=== PATIENT | male | born 1940 | race Caucasian/White ===

== ENCOUNTER 2020-03-14 10:18 | Inpatient (IN) | payer MEDICARE, OTHER, SELFPAY ==
[2020-03-14] VITALS (22 sets, daily range): BP systolic 110–171; BP diastolic 51–85; PULSE 72–118; RESP 18–31; TEMP 36.5–37.9; O2SAT 91–96; BMI 32.5
--- NOTE | 2020-03-14 10:25 | DI.RAD.S_ITS ---
PROCEDURE: XR CHEST 1V INDICATIONS: fever TECHNIQUE: One view of the chest was acquired. COMPARISON: [facility], CT, PE STUDY (CTA CHEST), 09/29/2015, 13:46. [facility], CT, CHEST WITH CONTRAST, 04/27/2010, 8:18. [facility], CR, CHEST 1 VIEW, 09/29/2015, 10:59. FINDINGS: Surgical changes and devices: None. Lungs and pleura: Low lung volumes are noted. This causes a crowded appearance to the lung markings and limits evaluation. There is chronic elevation of the right hemidiaphragm. Mediastinum: Mediastinal contours appear normal. Heart size is normal. Bones and chest wall: No suspicious bony lesions. Overlying soft tissues appear unremarkable. IMPRESSION: No focal infiltrates are seen. Low lung volumes. Chronic elevation of the right hemidiaphragm is seen. If there is strong clinical concern for paralysis of this hemidiaphragm, please consider a dedicated fluoroscopic sniff test for further evaluation. Dictated by: Russel Osman M.D. on 03/14/2020 at 9:42 Approved by: Russel Osman M.D. on 03/14/2020 at 9:43
--- NOTE | 2020-03-14 10:29 | DI.CT.S_ITS ---
PROCEDURE: CT ABDOMEN PELVIS W CON INDICATIONS: pain all over and fever TECHNIQUE: After the administration of intravenous contrast, 5 mm thick sections acquired from the diaphragm to the symphysis. 5 mm coronal and sagittal reformats were acquired. For radiation dose reduction, the following was used: automated exposure control, adjustment of mA and/or kV according to patient size. COMPARISON: [facility], CT, CHEST WITH CONTRAST, 04/27/2010, 8:18. [facility], CT, PE STUDY (CTA CHEST), 09/29/2015, 13:46. [facility], CT, ABDOMEN/PELVIS WITH CONTRAST, 09/14/2014, 12:39. FINDINGS: Image quality: Excellent. ABDOMEN: Lung bases: Right hemidiaphragm elevation and right basilar atelectasis. Heart size is normal. There is a small hiatal hernia. Solid organs: Liver is enlarged. There is hepatic steatosis. A 2.2 cm of hepatic hypodensity is most likely cyst or hemangioma. A couple of tiny hypodensities in liver are indeterminate. Gallbladder is surgically absent. Biliary system is non dilated. Pancreas enhances normally. Spleen is normal in size and enhancement. A 2 cm fat attenuation mass in the left adrenal gland is consistent with an adrenal myelolipoma. Kidneys demonstrate normal size and enhancement, without hydronephrosis. Peritoneum and bowel: Bowel loops demonstrate normal wall thickness and caliber. Appendix is normal. A few colonic diverticula are present. No CT findings to suggest acute diverticulitis. There is a moderate amount of stool in colon. No free fluid or air. Nodes and vessels: No retroperitoneal or mesenteric adenopathy by size criteria. Aorta and inferior vena cava are normal in size. Miscellaneous: There is a small umbilical hernia containing omental fat and a short segment of small intestine. Myelolipoma PELVIS: Genitourinary: Bladder wall thickness is normal. Miscellaneous: No inguinal adenopathy. Bilateral fat containing inguinal hernias. Bones: No suspicious bony lesions. No vertebral body compression fractures. Mild scoliosis. There are severe degenerative changes in lumbar spine. IMPRESSION: 1. No acute inflammatory process in abdomen or pelvis. 2. Hepatomegaly and hepatic steatosis. A hepatic cyst or hemangioma and a couple of indeterminate hepatic hypodensities are noted. 3. Diverticulosis without acute diverticulitis. 4. A 2 cm fatty mass in the left adrenal, compatible with an adrenal myelolipoma. 5. Small umbilical hernia containing omental fat and a short loop of small intestine. No findings to suggest small bowel obstruction. 6. Small hiatal hernia. Dictated by: Nadege Vigil M.D. on 03/14/2020 at 11:47 Approved by: Nadege Vigil M.D. on 03/14/2020 at 12:01
--- NOTE | 2020-03-14 10:43 | ED.SEPSIS ---
HPI - Sepsis General Chief Complaint: Abdominal Pain Mode of arrival: EMS Source: patient and EMS Limitations: no limitations Evaluation Sepsis Screen: Possible Sepsis Risk Sepsis Infection Criteria Present: Suspected New Infection Narrative: Patient is a 79-year-old male who presents with fever body shaking abdominal and back pain. He said last night he felt okay and this morning woke up and generally did not feel well he had some cramps in his arms along with his abdomen and back as well. He thinks he has a kidney infection although he has never had a kidney infection before. He denies any painful or frequent urination. He has no cough or chest pain although he is having some shortness of breath. Which he says is new. He denies any exposure to COVID. states he also had a injury to his right 2nd toe minute seems to be infected. This happened a couple weeks ago he cut it it did not heal properly it is quite erythematous. Review of Systems Review of Systems ROS Unobtainable: All systems reviewed & are unremarkable except as noted in HPI and below Constitutional Constitutional: Reports body ache(s), Reports chills and Reports fever(s) Eyes Eyes: Denies change in vision, Denies eye discharge, Denies irritation and Denies loss of vision ENT Ears, Nose, Mouth, and Throat: Denies change in voice, Denies neck pain and Denies sore throat Cardiovascular Cardiovascular: Reports dyspnea Respiratory Respiratory: Reports dyspnea Gastrointestinal Gastrointestinal: Reports abdominal pain, Denies change in bowel habits, Denies diarrhea, Denies nausea and Denies vomiting Musculoskeletal Musculoskeletal: Reports back pain, Reports myalgias and Denies neck pain Integumentary/Breasts Skin/Breast: Denies pruritus, Denies erythema, Denies rash and Denies wounds Neurologic Neurologic: Denies loss of vision Patient History Medical History Hypertension (Acute) Social History household members: spouse Smoking Status: Former smoker Smoking Status: Current every day smoker alcohol intake frequency: holidays/special occasions only Substance Use Type: does not use Exam Initial Vital Signs Initial Vital Signs: Vital Signs Temperature 100.3 F H 03/14/20 10:26 Pulse Rate 118 H 03/14/20 10:26 Respiratory Rate 19 03/14/20 10:26 Blood Pressure 171/85 H 03/14/20 10:26 Pulse Oximetry 94 03/14/20 10:26 GENERAL: Alert overweight male and in no acute distress. HEENT: Head atraumatic,EOMI, pupils reactive, face symmetric, moist mucous membranes CARDIOVASCULAR: Regular rate and rhythm without murmurs, rubs or gallops. RESPIRATORY: Breath sounds equal bilaterally, no wheezes rales or rhonchi. Slightly tachypneic speaks in full sentences without difficulty ABDOMEN: Soft, mild abdominal cramping : Mild bilateral CVA tenderness EXTREMITIES: Normal range of motion, no clubbing or edema. Neurovascularly intact NEUROLOGICAL: Alert and oriented x4.Normal gait and speech. SKIN: Right 2nd toe erythematous with erythema spreading up to mid foot Course Orders Ordered: ED Orders 03/14/20 10:25 XR chest 1V Stat 03/14/20 10:29 CT abdomen pelvis w con Stat 03/14/20 10:40 COVID19 -ED/INPAT/OR/L&D Stat 03/14/20 10:55 Complete Blood Count AUTO DIFF Stat Comprehensive Metabolic Panel Stat Lactate (Lactic Acid) Stat Procalcitonin Stat 03/14/20 11:13 Blood Culture Stat 03/14/20 13:16 Urine Culture Stat 03/14/20 13:24 XR foot RT min 3V Stat 03/14/20 13:29 C-Reactive Protein Quant Stat Erythrocyte Sedimentation Rate Stat Acetaminophen (Tylenol) 650 mg PO Q6HR PRN PRN Reason: Fever/Mild Pain (1-3) Last Admin: 03/14/20 17:20 Dose: 650 mg Documented by: ROSEMARY Enoxaparin Sodium (Lovenox) 40 mg SUBCUT DAILY [facility] Cefazolin Sodium/Dextrose (Ancef) 1 gm in 50 mls @ 200 mls/hr IV Q8H [facility] Last Infusion: 03/14/20 17:01 Dose: 0 mls/hr Documented by: Admin: 03/14/20 16:41 Dose: 200 mls/hr Documented by: RAMIREZ Influenza Virus Vaccine (Flu Hd Vaccine) 0.7 ml IM .ONCE ONE Stop: 03/15/20 11:01 Magnesium Hydroxide (Milk Of Magnesia) 30 ml PO DAILY PRN PRN Reason: Constipation Naloxone HCl (Narcan) 0.2 mg IV Q2MIN PRN PRN Reason: Opiate Reversal Discontinued Medications Acetaminophen (Tylenol) 975 mg PO NOW ONE Stop: 03/14/20 10:26 Last Admin: 03/14/20 11:14 Dose: 975 mg Documented by: RAMIREZ Sodium Chloride (Normal Saline 0.9%) 1,000 mls @ 1,000 mls/hr IV BOLUS ONE Stop: 03/14/20 11:24 Last Infusion: 03/14/20 13:11 Dose: 0 mls/hr Documented by: Admin: 03/14/20 11:15 Dose: 1,000 mls/hr Documented by: RAMIREZ Ceftriaxone Sodium/Dextrose (Rocephin) 1 gm in 50 mls @ 100 mls/hr IV NOW ONE Stop: 03/14/20 12:44 Last Infusion: 03/14/20 13:11 Dose: 0 mls/hr Documented by: Admin: 03/14/20 12:29 Dose: 100 mls/hr Documented by: JOANIE Ketorolac Tromethamine (Toradol) 30 mg IV NOW ONE Stop: 03/14/20 12:51 Last Admin: 03/14/20 13:22 Dose: 30 mg Documented by: RAMIREZ Vital Signs Vital signs: Vital Signs - 8 hr 03/14/20 11:13 03/14/20 11:14 03/14/20 11:24 Temperature 100.3 F H Pulse Rate 108 H 104 H Respiratory Rate 29 H Blood Pressure 141/63 H Pulse Oximetry 92 92 03/14/20 11:30 03/14/20 12:00 03/14/20 12:30 Temperature Pulse Rate 104 H 102 H 101 H Respiratory Rate 31 H 24 24 Blood Pressure Pulse Oximetry 92 91 91 03/14/20 13:00 03/14/20 13:22 03/14/20 13:30 Temperature 98.2 F Pulse Rate 97 H 98 H Respiratory Rate 23 22 Blood Pressure Pulse Oximetry 92 92 03/14/20 13:45 03/14/20 14:00 03/14/20 14:22 Temperature 98.2 F 98.2 F Pulse Rate 95 H 88 Respiratory Rate 20 22 Blood Pressure 127/58 L 129/60 Pulse Oximetry 94 93 MDM - Sepsis Lab Data Attestation: I reviewed the patient's lab results. Result diagrams: 03/14/20 10:55 03/14/20 10:55 Labs: Lab Results 03/14/20 03/14/20 03/14/20 Range/Units 10:40 10:55 10:55 WBC 11.5 H (4.5-11.0) X10^3/uL RBC 4.84 (4.5-5.9) X10^6/uL Hgb 14.3 (13.5-17.5) g/dL Hct 43.4 (41-53) % MCV 89.8 (80-100) fL MCH 29.5 (26-34) PG MCHC 32.9 (30-36) % RDW 13.0 (11.6-14.8) % Plt Count 144 L (150-400) X10^3/uL Neut % (Auto) 89.2 H (50-75) % Lymph % (Auto) 3.4 L (25-40) % [place] % (Auto) 7.0 (3-14) % Eos % (Auto) 0.1 L (2-4) % Baso % (Auto) 0.3 (0-2) % Neut # (Auto) 66430 H (9982-5471) /uL Lymph # (Auto) 400 L (9046-0458) /uL [place] # (Auto) 800 (0-900) /uL Eos # (Auto) 0 (0-450) /uL Baso # (Auto) 0 (0-100) /uL ESR (0-15) MM/HR Sodium (137-145) mmol/L Potassium (3.4-5.1) mmol/L Chloride (98-107) mmol/L Carbon Dioxide (22-32) mmol/L BUN (9-20) mg/dL Creatinine (0.66-1.25) mg/dL Estimated GFR (>60) mL/min BUN/Creatinine Ratio (6-22) Glucose (80-110) mg/dL Lactate (0.7-2.1) mmol/L Calcium (8.4-10.2) mg/dL Total Bilirubin (0.2-1.3) mg/dL AST (17-59) IU/L ALT (<50) IU/L Alkaline Phosphatase (38-126) U/L C-Reactive Protein (<1.0) mg/dL Total Protein (6.3-8.2) g/dL Albumin (3.5-5.0) g/dL Globulin (1.7-4.1) g/dL Albumin/Globulin Ratio (1.0-2.8) Procalcitonin 0.70 H (<0.5) ng/mL COVID-19 PCR Negative (Negative) 03/14/20 03/14/20 03/14/20 Range/Units 10:55 10:55 13:29 WBC (4.5-11.0) X10^3/uL RBC (4.5-5.9) X10^6/uL Hgb (13.5-17.5) g/dL Hct (41-53) % MCV (80-100) fL MCH (26-34) PG MCHC (30-36) % RDW (11.6-14.8) % Plt Count (150-400) X10^3/uL Neut % (Auto) (50-75) % Lymph % (Auto) (25-40) % [place] % (Auto) (3-14) % Eos % (Auto) (2-4) % Baso % (Auto) (0-2) % Neut # (Auto) (0370-5697) /uL Lymph # (Auto) (1919-9174) /uL [place] # (Auto) (0-900) /uL Eos # (Auto) (0-450) /uL Baso # (Auto) (0-100) /uL ESR 17 H (0-15) MM/HR Sodium 136 L (137-145) mmol/L Potassium 3.8 (3.4-5.1) mmol/L Chloride 102 (98-107) mmol/L Carbon Dioxide 28 (22-32) mmol/L BUN 18 (9-20) mg/dL Creatinine 0.78 (0.66-1.25) mg/dL Estimated GFR > 60.0 (>60) mL/min BUN/Creatinine Ratio 23.1 H (6-22) Glucose 111 H (80-110) mg/dL Lactate 1.5 (0.7-2.1) mmol/L Calcium 8.4 (8.4-10.2) mg/dL Total Bilirubin 1.0 (0.2-1.3) mg/dL AST 28 (17-59) IU/L ALT 25 (<50) IU/L Alkaline Phosphatase 70 (38-126) U/L C-Reactive Protein (<1.0) mg/dL Total Protein 7.3 (6.3-8.2) g/dL Albumin 3.9 (3.5-5.0) g/dL Globulin 3.4 (1.7-4.1) g/dL Albumin/Globulin Ratio 1.1 (1.0-2.8) Procalcitonin (<0.5) ng/mL COVID-19 PCR (Negative) 03/14/20 Range/Units 13:29 WBC (4.5-11.0) X10^3/uL RBC (4.5-5.9) X10^6/uL Hgb (13.5-17.5) g/dL Hct (41-53) % MCV (80-100) fL MCH (26-34) PG MCHC (30-36) % RDW (11.6-14.8) % Plt Count (150-400) X10^3/uL Neut % (Auto) (50-75) % Lymph % (Auto) (25-40) % [place] % (Auto) (3-14) % Eos % (Auto) (2-4) % Baso % (Auto) (0-2) % Neut # (Auto) (7826-0236) /uL Lymph # (Auto) (4575-1681) /uL [place] # (Auto) (0-900) /uL Eos # (Auto) (0-450) /uL Baso # (Auto) (0-100) /uL ESR (0-15) MM/HR Sodium (137-145) mmol/L Potassium (3.4-5.1) mmol/L Chloride (98-107) mmol/L Carbon Dioxide (22-32) mmol/L BUN (9-20) mg/dL Creatinine (0.66-1.25) mg/dL Estimated GFR (>60) mL/min BUN/Creatinine Ratio (6-22) Glucose (80-110) mg/dL Lactate (0.7-2.1) mmol/L Calcium (8.4-10.2) mg/dL Total Bilirubin (0.2-1.3) mg/dL AST (17-59) IU/L ALT (<50) IU/L Alkaline Phosphatase (38-126) U/L C-Reactive Protein 1.5 H (<1.0) mg/dL Total Protein (6.3-8.2) g/dL Albumin (3.5-5.0) g/dL Globulin (1.7-4.1) g/dL Albumin/Globulin Ratio (1.0-2.8) Procalcitonin (<0.5) ng/mL COVID-19 PCR (Negative) Urine Dip Bedside Urine Glucose Negative Bedside Urine Bilirubin - Negative Bedside Urine Ketone - Negative Urine Specific [place] 1.015 Bedside Urine Occult Blood - Negative Bedside Urine pH 6.5 Bedside Urine Protein - Negative Bedside Urine Urobilinogen - Negative Bedside Urine Nitrite - Negative Bedside Urine Leukocytes - Negative Esterase Imaging Data CT scan - abdomen/pelvis: Radiologist's Impression: PROCEDURE: CT ABDOMEN PELVIS W CON INDICATIONS: pain all over and fever TECHNIQUE: After the administration of intravenous contrast, 5 mm thick sections acquired from the diaphragm to the symphysis. 5 mm coronal and sagittal reformats were acquired. For radiation dose reduction, the following was used: automated exposure control, adjustment of mA and/or kV according to patient size. COMPARISON: [facility], CT, CHEST WITH CONTRAST, 04/27/2010, 8:18. [facility], CT, PE STUDY (CTA CHEST), 09/29/2015, 13:46. [facility], CT, ABDOMEN/PELVIS WITH CONTRAST, 09/14/2014, 12:39. FINDINGS: Image quality: Excellent. ABDOMEN: Lung bases: Right hemidiaphragm elevation and right basilar atelectasis. Heart size is normal. There is a small hiatal hernia. Solid organs: Liver is enlarged. There is hepatic steatosis. A 2.2 cm of hepatic hypodensity is most likely cyst or hemangioma. A couple of tiny hypodensities in liver are indeterminate. Gallbladder is surgically absent. Biliary system is non dilated. Pancreas enhances normally. Spleen is normal in size and enhancement. A 2 cm fat attenuation mass in the left adrenal gland is consistent with an adrenal myelolipoma. Kidneys demonstrate normal size and enhancement, without hydronephrosis. Peritoneum and bowel: Bowel loops demonstrate normal wall thickness and caliber. Appendix is normal. A few colonic diverticula are present. No CT findings to suggest acute diverticulitis. There is a moderate amount of stool in colon. No free fluid or air. Nodes and vessels: No retroperitoneal or mesenteric adenopathy by size criteria. Aorta and inferior vena cava are normal in size. Miscellaneous: There is a small umbilical hernia containing omental fat and a short segment of small intestine. Myelolipoma PELVIS: Genitourinary: Bladder wall thickness is normal. Miscellaneous: No inguinal adenopathy. Bilateral fat containing inguinal hernias. Bones: No suspicious bony lesions. No vertebral body compression fractures. Mild scoliosis. There are severe degenerative changes in lumbar spine. IMPRESSION: 1. No acute inflammatory process in abdomen or pelvis. 2. Hepatomegaly and hepatic steatosis. A hepatic cyst or hemangioma and a couple of indeterminate hepatic hypodensities are noted. 3. Diverticulosis without acute diverticulitis. 4. A 2 cm fatty mass in the left adrenal, compatible with an adrenal myelolipoma. 5. Small umbilical hernia containing omental fat and a short loop of small intestine. No findings to suggest small bowel obstruction. 6. Small hiatal hernia. Dictated by: Nadege Vigil M.D. on 03/14/2020 at 11:47 Approved by: Nadege Vigil M.D. on 03/14/2020 at 12:01 Chest x-ray: Radiologist's Impression: PROCEDURE: XR CHEST 1V INDICATIONS: fever TECHNIQUE: One view of the chest was acquired. COMPARISON: [facility], CT, PE STUDY (CTA CHEST), 09/29/2015, 13:46. [facility], CT, CHEST WITH CONTRAST, 04/27/2010, 8:18. [facility], CR, CHEST 1 VIEW, 09/29/2015, 10:59. FINDINGS: Surgical changes and devices: None. Lungs and pleura: Low lung volumes are noted. This causes a crowded appearance to the lung markings and limits evaluation. There is chronic elevation of the right hemidiaphragm. Mediastinum: Mediastinal contours appear normal. Heart size is normal. Bones and chest wall: No suspicious bony lesions. Overlying soft tissues appear unremarkable. IMPRESSION: No focal infiltrates are seen. Low lung volumes. Chronic elevation of the right hemidiaphragm is seen. If there is strong clinical concern for paralysis of this hemidiaphragm, please consider a dedicated fluoroscopic sniff test for further evaluation. Dictated by: Russel Osman M.D. on 03/14/2020 at 9:42 MDM Narrative Medical decision making narrative: Patient clearly has cellulitis of his right foot no other obvious source of infection is found. Elevated ESR CRP. He is given a dose of Rocephin in the ED to help cover for possible pyelonephritis he does have some CVA tenderness and cellulitis of the right foot. Dr. Martinez in ED to see and evaluate patient accepts for observation Discharge Plan Departure Patient Disposition: Admitted as Observation Clinical Impression: Cellulitis Sepsis Qualifiers: Sepsis type: sepsis due to unspecified organism Sepsis acute organ dysfunction status: without acute organ dysfunction Qualified Code(s): A41.9 - Sepsis, unspecified organism Discharge Date/Time: 03/14/20 17:02 Referrals: Tristian Prater MD [Primary Care Provider] - Admit Date/Time: 03/14/20 14:27 Admit Provider: Johnathan Martinez
[2020-03-14 10:59] LABS: COVID19 -Nasal RAPID Negative (Negative)
[2020-03-14 11:04] LABS: Add Manual Diff / Slide Review NO; Basophils Absolute Auto 0 /uL (0-100); Basophils Percent Auto 0.3 % (0-2); Eosinophils Absolute Auto 0 /uL (0-450); Eosinophils Percent Auto 0.1 % (2-4); Hematocrit 43.4 % (41-53); Hemoglobin 14.3 g/dL (13.5-17.5); Lymphocytes Absolute Auto 400 /uL (1100-4500); Lymphocytes Percent Auto 3.4 % (25-40); Mean Corpuscular HGB Conc 32.9 % (30-36); Mean Corpuscular Hemoglobin 29.5 PG (26-34); Mean Corpuscular Volume 89.8 fL (80-100); Monocytes Absolute Auto 800 /uL (0-900); Neutrophils Absolute Auto 10300 /uL (1500-7000); Neutrophils Percent Auto 89.2 % (50-75); Platelet Count 144 X10^3/uL (150-400); Red Blood Cell Count 4.84 X10^6/uL (4.5-5.9); White Blood Cell Count 11.5 X10^3/uL (4.5-11.0)
[2020-03-14] MEDS: ACETAMINOPHEN 325 MG TABLET 975 MG PO (11:14)
[2020-03-14] MEDS: SODIUM CHLORIDE 0.9% 1,000 ML 1000 ML IV (11:15)
[2020-03-14 11:16] LABS: Alanine Aminotransferase 25 IU/L (<50); Albumin 3.9 g/dL (3.5-5.0); Albumin Globulin Ratio 1.1 (1.0-2.8); Alkaline Phosphatase 70 U/L (38-126); Aspartate Aminotransferase 28 IU/L (17-59); BUN Creatinine Ratio 23.1 (6-22); Blood Urea Nitrogen 18 mg/dL (9-20); Calcium 8.4 mg/dL (8.4-10.2); Carbon Dioxide 28 mmol/L (22-32); Chloride 102 mmol/L (98-107); Estimated Glomerular Filt Rate > 60.0 mL/min (>60); Globulin 3.4 g/dL (1.7-4.1); Glucose 111 mg/dL (80-110); HEMOLYSIS < 15 (0-50); Potassium 3.8 mmol/L (3.4-5.1); Sodium 136 mmol/L (137-145); Total Protein 7.3 g/dL (6.3-8.2)
[2020-03-14 11:17] LABS: Lactate (Lactic Acid) 1.5 mmol/L (0.7-2.1)
[2020-03-14] MEDS: CEFTRIAXONE 1 GM/50 ML FROZ.PIGGY IV (12:29)
[2020-03-14] MEDS: KETOROLAC 60 MG/2 ML VIAL 30 MG IV (13:22)
--- NOTE | 2020-03-14 13:24 | DI.RAD.S_ITS ---
PROCEDURE: XR FOOT RT MIN 3V INDICATIONS: 2nd toe ?osteo TECHNIQUE: 3 views of the foot were acquired. COMPARISON: None. FINDINGS: Bones: In this patient with this given history, scrutiny is given to the 2nd toe. No findings of bony erosions or periosteal reactions can be seen of the 2nd toe. No acute fractures are seen. There is a chronic appearing fracture seen involving the lateral base of the proximal phalanx of the great toe. Age-appropriate bony degenerative changes are seen. No suspicious lytic or blastic lesions are seen. Toe alignment abnormalities are seen. A plantar calcaneal spur is seen. Soft tissues: No tibiotalar joint effusion. Achilles tendon appears normal. IMPRESSION: No plain film findings of osteomyelitis can be seen. If there is strong suspicion for developing osteomyelitis, please consider a dedicated MRI without and with contrast for further evaluation (assuming that there is no contraindication to MRI). Degenerative changes are seen, including toe alignment abnormalities and a plantar calcaneal spur. Dictated by: Russel Osman M.D. on 03/14/2020 at 13:00 Approved by: Russel Osman M.D. on 03/14/2020 at 13:02
[2020-03-14 13:39] LABS: C-Reactive Protein Quant 1.5 mg/dL (<1.0)
[2020-03-14 13:48] LABS: Erythrocyte Sedimentation Rate 17 MM/HR (0-15)
--- NOTE | 2020-03-14 14:25 | PC.NURSE ---
right great toe, extending to top of foot, red. outlined. pt dropped a a 4x4 piece of wood on it in November. second toe is swollen, red.
--- NOTE | 2020-03-14 16:04 | P.HP_ITS ---
History of Present Illness History of Present Illness Date Patient Seen: 03/14/20 Time Patient Seen: 15:15 Date of Onset of Symptoms: 03/13/20 Chief complaint: Kidney pain since last night Narrative: Patient is a 79-year-old male with obesity but otherwise no chronic health problems presented to the emergency department with complaints of shaking chills since last night. He was feeling okay until last p.m. developed shaking chills which lasted all night and into this morning. He also noticed some back pain and thought it could be a kidney infection. In the ER he was found to have a red and swollen right 2nd toe extending to the distal foot. Patient states he dropped a 4 x 4 on his foot back in November. He has been applying Neosporin ointment often on and had not sought medical attention. He did notice some redness developing in the foot over the past couple of weeks. In ER he had low-grade temp of 100.3?, initial heart rate 118, normal to mildly hypertensive BP, normal respirations and O2 sat. Labs included mildly elevated WBC 11.5 with left shift, elevated procalcitonin 0.7, ESR 17 and CRP 1.5. Lactate is 1.5. He had normal urinalysis. Chest x-ray without infiltrate. Abdomen and pelvis CT without acute disease. Foot x-rays without evidence of fracture or osteomyelitis. He denies cough, dyspnea, abdominal pain, urinary difficulty. Patient received dose of IV antibiotic and admitted to hospital observation. Patient History Medical History Hypertension (Acute) Family & Social History Safety & Behavioral: Feels Safe in Current Yes Environment Been Physically Hurt or No Threatened By a Person Tobacco & Substance use: Smoking Status Current every day smoker alcohol intake frequency holiday/special occasion Substance Use Type does not use Meds Home Medications and Allergies Home Medications Medication Instructions Recorded Confirmed Type dextromethorphan polistirex 30 mg PO Q12H 10 Days #0 ml 06/14/16 Rx [Delsym 12 hour] dextromethorphan-guaifenesin 1 tab PO Q12H 10 Days #0 tab 06/14/16 Rx [Mucinex DM] oseltamivir [Tamiflu] 75 mg PO BID 5 Days #0 cap 06/14/16 Rx Allergies Allergy/AdvReac Type Severity Reaction Status Date / Time No Known Drug Allergies Allergy Unknown Verified 03/14/20 10:32 Review of Systems Review of Systems ROS: Yes All systems reviewed with the patient and are negative except as otherwise documented Exam Vital Signs (past 8 hours): - 03/14/20 10:26 03/14/20 11:13 03/14/20 11:14 Temperature 100.3 F H 100.3 F H Pulse Rate 118 H 108 H Respiratory Rate 19 Blood Pressure 171/85 H Pulse Oximetry 94 92 03/14/20 11:24 03/14/20 11:30 03/14/20 12:00 Temperature Pulse Rate 104 H 104 H 102 H Respiratory Rate 29 H 31 H 24 Blood Pressure 141/63 H Pulse Oximetry 92 92 91 03/14/20 12:30 03/14/20 13:00 03/14/20 13:30 Temperature Pulse Rate 101 H 97 H 98 H Respiratory Rate 24 23 22 Blood Pressure Pulse Oximetry 91 92 92 03/14/20 13:45 03/14/20 14:00 03/14/20 14:22 Temperature 98.2 F 98.2 F Pulse Rate 95 H 88 Respiratory Rate 20 22 Blood Pressure 127/58 L 129/60 Pulse Oximetry 94 93 03/14/20 14:30 03/14/20 15:00 03/14/20 15:30 Temperature Pulse Rate 82 81 77 Respiratory Rate 22 19 21 Blood Pressure 113/54 L 122/59 L 110/51 L Pulse Oximetry 94 92 93 Oxygen Delivery Method Room Air Narrative Exam Narrative: General: Alert and cooperative male currently in no acute distress after pain relievers in the ED HEENT: Pupils equal and reactive Neck: No lymphadenopathy Lungs: Clear to auscultation Heart: Normal S1 and S2, regular rate and rhythm, no murmur Abdomen: Obese, soft, nontender, no HSM, no CVAT Extremities: No pretibial edema, there is macular erythema and mild swelling of the right 2nd toe with erythema extending to the distal 3rd of the foot. There is hard callus at tip of the 2nd right toe. There are no draining lesions or ulcers. Objective Labs Result Diagrams: 03/14/20 10:55 03/14/20 10:55 Labs: Laboratory Results - last 24 hr 03/14/20 03/14/20 03/14/20 10:40 10:55 10:55 WBC 11.5 H RBC 4.84 Hgb 14.3 Hct 43.4 MCV 89.8 MCH 29.5 MCHC 32.9 RDW 13.0 Plt Count 144 L Neut % (Auto) 89.2 H Lymph % (Auto) 3.4 L [place] % (Auto) 7.0 Eos % (Auto) 0.1 L Baso % (Auto) 0.3 Neut # (Auto) 93380 H Lymph # (Auto) 400 L [place] # (Auto) 800 Eos # (Auto) 0 Baso # (Auto) 0 ESR Sodium Potassium Chloride Carbon Dioxide BUN Creatinine Estimated GFR BUN/Creatinine Ratio Glucose Lactate Calcium Total Bilirubin AST ALT Alkaline Phosphatase C-Reactive Protein Total Protein Albumin Globulin Albumin/Globulin Ratio Procalcitonin 0.70 H COVID-19 PCR Negative 03/14/20 03/14/20 03/14/20 10:55 10:55 13:29 WBC RBC Hgb Hct MCV MCH MCHC RDW Plt Count Neut % (Auto) Lymph % (Auto) [place] % (Auto) Eos % (Auto) Baso % (Auto) Neut # (Auto) Lymph # (Auto) [place] # (Auto) Eos # (Auto) Baso # (Auto) ESR 17 H Sodium 136 L Potassium 3.8 Chloride 102 Carbon Dioxide 28 BUN 18 Creatinine 0.78 Estimated GFR > 60.0 BUN/Creatinine Ratio 23.1 H Glucose 111 H Lactate 1.5 Calcium 8.4 Total Bilirubin 1.0 AST 28 ALT 25 Alkaline Phosphatase 70 C-Reactive Protein Total Protein 7.3 Albumin 3.9 Globulin 3.4 Albumin/Globulin Ratio 1.1 Procalcitonin COVID-19 PCR 03/14/20 13:29 WBC RBC Hgb Hct MCV MCH MCHC RDW Plt Count Neut % (Auto) Lymph % (Auto) [place] % (Auto) Eos % (Auto) Baso % (Auto) Neut # (Auto) Lymph # (Auto) [place] # (Auto) Eos # (Auto) Baso # (Auto) ESR Sodium Potassium Chloride Carbon Dioxide BUN Creatinine Estimated GFR BUN/Creatinine Ratio Glucose Lactate Calcium Total Bilirubin AST ALT Alkaline Phosphatase C-Reactive Protein 1.5 H Total Protein Albumin Globulin Albumin/Globulin Ratio Procalcitonin COVID-19 PCR Assessment & Plan Assessment & Plan narrative: Patient is a 79-year-old male who presents with acute rigors and evidence of right foot cellulitis. 1. Acute right foot cellulitis, present on admission, active -patient with history of mild trauma to the foot in November of this year -patient with rigors, low-grade temp, tachycardia -labs: WBC 11.5, procalcitonin 0.7, low ESR and CRP -foot x-ray without fracture or osteomyelitis -blood cultures obtained in ED -treat with cefazolin 1 g IV q.8 hours -acetaminophen as needed pain or fever -follow exam and repeat CBC and procalcitonin in a.m. -can switch to oral therapy if patient afebrile with declining WBC and procalcitonin COVID-19 PCR: Negative Code status: Full code DVT prophylaxis: Lovenox Admission status: Observation
[2020-03-14] MEDS: CEFAZOLIN 1 GM/50 ML FROZ.PIGGY IV (16:41)
[2020-03-14] MEDS: ACETAMINOPHEN 325 MG TABLET 650 MG PO (17:20)
[2020-03-15] VITALS (15 sets, daily range): BP systolic 125–149; BP diastolic 61–79; PULSE 68–77; RESP 15–20; TEMP 36.9–37.9; O2SAT 93–97
[2020-03-15] MEDS: CEFAZOLIN 1 GM/50 ML FROZ.PIGGY IV ×3 (00:37→17:13)
[2020-03-15] MEDS: ACETAMINOPHEN 325 MG TABLET 650 MG PO ×2 (00:39→17:16)
[2020-03-15] MEDS: MAGNESIUM HYDROXIDE 30 ML UDC PO (01:18)
--- NOTE | 2020-03-15 03:35 | PC.NURSE ---
Patient was feeling lightheaded and feverish. Temp was 100.3 F at 00:39. He was given acetaminophen 650 mg. His temp went down to 98.5 at 02:27. He was also complaining of feeling full in his abdomen and that he had not had a bowel movement in two days. He was given Milk and Magnesia but has still not had a bowel movement at this time.
--- NOTE | 2020-03-15 04:08 | PC.NURSE ---
Pt resting in bed with eyes closed at time of safety checks with change of nurses. Personal items are within reach.
[2020-03-15 05:21] LABS: Add Manual Diff / Slide Review NO; Basophils Absolute Auto 0 /uL (0-100); Basophils Percent Auto 0.6 % (0-2); Eosinophils Absolute Auto 0 /uL (0-450); Eosinophils Percent Auto 0.1 % (2-4); Hematocrit 38.7 % (41-53); Hemoglobin 12.8 g/dL (13.5-17.5); Lymphocytes Absolute Auto 500 /uL (1100-4500); Lymphocytes Percent Auto 8.9 % (25-40); Mean Corpuscular HGB Conc 33.1 % (30-36); Mean Corpuscular Hemoglobin 29.7 PG (26-34); Mean Corpuscular Volume 89.6 fL (80-100); Monocytes Absolute Auto 600 /uL (0-900); Neutrophils Absolute Auto 4700 /uL (1500-7000); Neutrophils Percent Auto 80.4 % (50-75); Platelet Count 109 X10^3/uL (150-400); Red Blood Cell Count 4.32 X10^6/uL (4.5-5.9); Red Cell Distribution Width 12.9 % (11.6-14.8); White Blood Cell Count 5.8 X10^3/uL (4.5-11.0)
[2020-03-15 05:43] LABS: Procalcitonin 3.77 ng/mL (<0.5)
[2020-03-15] MEDS: ENOXAPARIN 40 MG/0.4 ML SYRINGE SUBCUT (08:22)
--- NOTE | 2020-03-15 08:31 | DI.CT.S_ITS ---
PROCEDURE: CT CHEST WO CON INDICATIONS: cough TECHNIQUE: Noncontrast 5 mm thick sections acquired from the pulmonary apices to the posterior costophrenic angles. 1 mm lung window, 5 mm thick coronal and sagittal and 7 mm axial MIP reformats were then acquired. For radiation dose reduction, the following was used: automated exposure control, adjustment of mA and/or kV according to patient size. COMPARISON: [facility], CT, PE STUDY (CTA CHEST), 09/29/2015, 13:46. [facility], CT, CHEST WITH CONTRAST, 04/27/2010, 8:18. [facility], CT, CT ABDOMEN PELVIS W CON, 03/14/2020, 11:33. [facility], CR, XR CHEST 1V, 03/14/2020, 10:28. FINDINGS: Image quality: Excellent. Lungs and pleura: Mild consolidations can be seen within the lung bases, which have the appearance most likely atelectasis. No pleural effusions or pneumothorax. Central and peripheral airways are patent and normal in caliber. There is elevation of the right hemidiaphragm. Mediastinum: Heart size is normal. No pericardial effusion. No mediastinal adenopathy by size criteria. Thoracic aorta and central pulmonary arteries are normal in size. Esophagus is normal in caliber. A small hiatal hernia is incidentally noted. hiatal hernia. Bones and chest wall: No suspicious bony lesions. No vertebral body compression fractures. Mild dextroconvex scoliotic curvature is seen. Age-appropriate bony degenerative changes are seen. Remote left lateral rib fractures can be seen. No axillary or supraclavicular adenopathy by size criteria. Thyroid gland demonstrates no significant noncontrast abnormality. Abdomen: There is a water density liver cyst seen medially measuring 2.2 cm, as on series 2, image 58. 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 Cholecystectomy clips are seen. The visualized portions of the upper abdominal structures are otherwise unremarkable for imaging technique. IMPRESSION: Likely mild atelectasis at the lung bases. Differential diagnosis includes infiltrate, yet this is considered to be less likely. Chronic elevation the right hemidiaphragm If there is strong clinical concern for paralysis of this hemidiaphragm, please consider a dedicated fluoroscopic sniff test for further evaluation. Incidental note is made of: Remote left lateral rib fractures Small hiatal hernia Liver cyst Left adrenal lipoma Cholecystectomy Dextroconvex scoliotic curvature Dictated by: Russel Osman M.D. on 03/15/2020 at 8:11 Approved by: Russel Osman M.D. on 03/15/2020 at 8:16
--- NOTE | 2020-03-15 09:32 | P.PN_ITS ---
Subjective Subjective Date Patient Seen: 03/15/20 Interval history: Patient is 79-year-old male with obesity but otherwise no chronic health problems presented with fever and rigors. He is admitted for right foot cellulitis. Patient reports improvement in right foot pain and did not have fever overnight. Exam Vital Signs (past 8 hours): - 03/15/20 02:00 03/15/20 02:27 03/15/20 03:00 Temperature 99.3 F 98.5 F Pulse Rate Respiratory Rate Blood Pressure Pulse Oximetry 93 03/15/20 06:35 03/15/20 08:27 03/15/20 08:42 Temperature 99.0 F 98.6 F Pulse Rate 76 71 Respiratory Rate 15 20 Blood Pressure 125/61 128/64 Pulse Oximetry 94 95 95 Oxygen Delivery Method Room Air Oxygen Flow Rate 0 Narrative Exam Narrative: General: Alert and cooperative male in no acute distress Lungs: Diminished breath sounds in right lower lobe crackles Heart: Regular rhythm Extremities: There is resolution of erythema over dorsum of right foot. There is improvement of right 2nd toe erythema and swelling. Objective Labs Result Diagrams: 03/15/20 05:05 03/14/20 10:55 Labs: Laboratory Results - last 24 hr 03/14/20 03/14/20 03/14/20 10:40 10:55 10:55 WBC 11.5 H RBC 4.84 Hgb 14.3 Hct 43.4 MCV 89.8 MCH 29.5 MCHC 32.9 RDW 13.0 Plt Count 144 L Neut % (Auto) 89.2 H Lymph % (Auto) 3.4 L [place] % (Auto) 7.0 Eos % (Auto) 0.1 L Baso % (Auto) 0.3 Neut # (Auto) 81327 H Lymph # (Auto) 400 L [place] # (Auto) 800 Eos # (Auto) 0 Baso # (Auto) 0 ESR Sodium Potassium Chloride Carbon Dioxide BUN Creatinine Estimated GFR BUN/Creatinine Ratio Glucose Lactate Calcium Total Bilirubin AST ALT Alkaline Phosphatase C-Reactive Protein Total Protein Albumin Globulin Albumin/Globulin Ratio Procalcitonin 0.70 H COVID-19 PCR Negative 03/14/20 03/14/20 03/14/20 10:55 10:55 13:29 WBC RBC Hgb Hct MCV MCH MCHC RDW Plt Count Neut % (Auto) Lymph % (Auto) [place] % (Auto) Eos % (Auto) Baso % (Auto) Neut # (Auto) Lymph # (Auto) [place] # (Auto) Eos # (Auto) Baso # (Auto) ESR 17 H Sodium 136 L Potassium 3.8 Chloride 102 Carbon Dioxide 28 BUN 18 Creatinine 0.78 Estimated GFR > 60.0 BUN/Creatinine Ratio 23.1 H Glucose 111 H Lactate 1.5 Calcium 8.4 Total Bilirubin 1.0 AST 28 ALT 25 Alkaline Phosphatase 70 C-Reactive Protein Total Protein 7.3 Albumin 3.9 Globulin 3.4 Albumin/Globulin Ratio 1.1 Procalcitonin COVID-19 PCR 03/14/20 03/15/20 03/15/20 13:29 05:05 05:05 WBC 5.8 RBC 4.32 L Hgb 12.8 L Hct 38.7 L MCV 89.6 MCH 29.7 MCHC 33.1 RDW 12.9 Plt Count 109 L Neut % (Auto) 80.4 H Lymph % (Auto) 8.9 L [place] % (Auto) 10.0 Eos % (Auto) 0.1 L Baso % (Auto) 0.6 Neut # (Auto) 4700 Lymph # (Auto) 500 L [place] # (Auto) 600 Eos # (Auto) 0 Baso # (Auto) 0 ESR Sodium Potassium Chloride Carbon Dioxide BUN Creatinine Estimated GFR BUN/Creatinine Ratio Glucose Lactate Calcium Total Bilirubin AST ALT Alkaline Phosphatase C-Reactive Protein 1.5 H Total Protein Albumin Globulin Albumin/Globulin Ratio Procalcitonin 3.77 H COVID-19 PCR Assessment & Plan Assessment & Plan narrative: Patient is a 79-year-old male who presents with acute rigors and evidence of right foot cellulitis. 1. Acute right foot cellulitis, present on admission, active -patient with history of mild trauma to the foot in November of this year, foot x- ray without fracture or osteomyelitis -patient is clinically responding to IV antibiotic with improvement of fever, right foot erythema and decrease in WBC, however his procalcitonin has significantly bumped up -labs: WBC 11.5--5.8, procalcitonin 0.7--3.77, low ESR and CRP -blood cultures negative to date -treat with cefazolin 1 g IV q.8 hours -acetaminophen as needed pain or fever -follow exam and repeat CBC and procalcitonin in a.m. -can switch to oral therapy if patient afebrile with declining WBC and procalcitonin 2. Chronic rib elevation of right hemidiaphragm -patient with persistent right lower base crackles and has chronic a.m. cough, right base crackles noted on exam -noncontrast chest CT shows elevated right hemidiaphragm and right base atelectasis but no evidence of pneumonia -incentive spirometry Patient requires at least 1 additional night in hospital for IV antibiotic until we see his procalcitonin significantly coming down. COVID-19 PCR: Negative Code status: Full code DVT prophylaxis: Lovenox Admission status: Change to inpatient Quality VTE Deep Vein Thrombosis/Pulmonary Embolism Present on Admission: No
[2020-03-15] MEDS: INFLUENZA HD VACCINE 0.7 ML SYRINGE IM (10:28)
--- NOTE | 2020-03-15 11:58 | PC.NURSE ---
Addendum entered by Lis Pollock R.N. 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 At shift change pt had his hearing aids in bilateral ears. Original Note: Day Shift- Took over care from CHARLY Nair at 1100. pt up to BR with SBA, steady gait, then settled back into recliner chair with RLE elevated on 2 pillows. Right 2nd toe redness. Pt states color is less bright red than yesterday. edema present. Previously marked when redness was, currently only has redness to right 2nd toe. Dry skin and callus to end of 2nd right toe. Pt states no pain with rest and 6-7/10 aching with ambulation. No PRN pain meds at this time.Pt declined. Call light within reach, pt uses appropriately.
--- NOTE | 2020-03-15 14:50 | CM.DANOTE ---
Discharge Planning/Care Management DCP: assessment: case received, EMR reviewed and met with pt briefly during Team Rounds and then later with pt and his Becki. Introduced self and role. Pt is a 79 year old male who admitted yesterday afternoon to care of hospitalist team. PCP: Tristian Prater: [facility] Payer: Medicare and R. Pt admitted with R foot cellulitis and is on IV antibiotics. Dr. Martinez explained to pt in Rounds that he would be keeping him until at least tomorrow and would be able to d/c home once his labs stabilized. Pt confirmed that he was extremely [place] and asked Dr. Martinez to discuss POC further with his . During followup visit with pt and Becki she did confirm that she had received a call from Dr. Martinez and was appreciative of same. She said her understanding was that pt will go home likely tomorrow and would be following up with a marketing underwriter at d/c as well as with his PCP. P: follow up tomorrow. At this time plan is home and clinic followup when stable for same and on oral antibiotics. CM Discharge Assessment Start: 03/15/20 14:48 Freq: Status: Active Protocol: Document 03/15/20 14:49 ITV (Rec: 03/15/20 14:50 ITV [id number]) Discharge Planning Assessment Advance Directives? No History Provided By Patient,Family Member,Medical Record Prior Living Arrangements House Household Members spouse Independent with ADL's Yes Is patient alert and oriented? Yes Discharge Plan Home
[2020-03-16] VITALS: BP 145/79; PULSE 71; RESP 18; TEMP 36.5; O2SAT 96
[2020-03-16] MEDS: CEFAZOLIN 1 GM/50 ML FROZ.PIGGY IV ×2 (00:42→07:49)
[2020-03-16 00:50] VITALS: O2SAT 96
[2020-03-16 04:45] VITALS: BP 153/77; PULSE 81; RESP 18; TEMP 36.6; O2SAT 95
[2020-03-16 05:00] VITALS: O2SAT 95
[2020-03-16 05:53] LABS: Hematocrit 39.9 % (41-53); Hemoglobin 13.3 g/dL (13.5-17.5); Mean Corpuscular HGB Conc 33.4 % (30-36); Mean Corpuscular Hemoglobin 29.9 PG (26-34); Mean Corpuscular Volume 89.7 fL (80-100); Platelet Count 116 X10^3/uL (150-400); Red Blood Cell Count 4.45 X10^6/uL (4.5-5.9); Red Cell Distribution Width 12.8 % (11.6-14.8)
[2020-03-16 05:54] LABS: Add Manual Diff / Slide Review YES
[2020-03-16 06:13] LABS: Procalcitonin 2.29 ng/mL (<0.5)
[2020-03-16 06:34] LABS: Neutrophils Absolute Manual 3450 /uL (3000-5900); RBC Morphology Normal Morphology; Total Cells Counted 100
[2020-03-16 07:40] VITALS: O2SAT 94
[2020-03-16] MEDS: SODIUM CHLORIDE 0.9% FLUSH 10 ML IV (07:49)
[2020-03-16] MEDS: ENOXAPARIN 40 MG/0.4 ML SYRINGE SUBCUT (07:49)
[2020-03-16 08:00] VITALS: BP 146/71; PULSE 93; RESP 18; TEMP 36.6; O2SAT 94
--- NOTE | 2020-03-16 08:57 | PC.NURSE ---
Addendum entered by Lis Pollock R.N. 03/16/20 13:13: At 1240, discharge summary packet reviewed with pt, aware of S/S of infection, prescription and antibiotic use. Wound care per Dr. Ravi. Aware to call Dr. Ravi's office Tuesday morning to make a follow up appointment for this coming . No further voiced concerns. Pt states has all belongings upon discharge. Pt left unit at 1311 in no distress via wheelchair with [employer] escort. Pt's present to drive pt home. Addendum entered by Lis Pollock R.N. 03/16/20 11:26: Dr. Ravi perform bedside procedure on pt's right 2nd toe, Bupivacaine inj not used by Dr. Ravi. Wound culture from 2nd right toe sent to lab for wound culture and sensitivity and gram stain per Dr. Ravi verbal order at 1045. Per Dr. Martinez, pt will be discharged home today. [facility] pharmacy closed today,therefore pt's 2nd request for pharmacy is [facility] in [place]. Original Note: Day Shift- Pt currently sitting up in chair with RLE elevated on 2 pillows. Pt denies pain with rest, states pain 5-6/10 with ambulation. Pt did not want any prn meds at this time. Right 2nd toe red, not exceeding past toe, wrinkles at base of toe. hard callus to tip of toe. To right of nail bed is soft fluid like under skin, pt also concerned with this. Spoke with Dr. Martinez at 0858, aware of above. Plan for NPO and Ortho consult. Pt aware from Dr. Martinez. Pt appropriate using call light for assist. No other issues.
--- NOTE | 2020-03-16 10:16 | P.CONS_ITS ---
History of Present Illness Consult details Date Patient Seen: 03/16/20 Time Patient Seen: 09:46 Chief complaint: Kidney pain since last night Reason for consult: Right second toe injury, hx of cellulitis Requesting provider: Johnathan Martinez Narrative: Mr. Pearson is a 79 yo M with hx of right foot injury 3 months ago. Soo curiel developed cellulitis over his right foot over the last month. He was admitted and placed on IV antibiotics. He responded well with near complete resolution of his cellulitis. He has a chronic appearing calus over his right second toe. He has some fluid collection at the tip of his second toe which is flucturant on exam. Dr. Martinez consulted orthopedics service for additional recommendation and t reatment. Meds Home Medications and Allergies Home Medications Medication Instructions Recorded Confirmed Type hydrochlorothiazide 25 mg PO DAILY 03/15/20 03/15/20 History potassium chloride 20 meq PO DAILY 03/15/20 03/15/20 History Allergies Allergy/AdvReac Type Severity Reaction Status Date / Time No Known Drug Allergies Allergy Unknown Verified 03/14/20 10:32 Exam Vital Signs (past 8 hours): - 03/16/20 04:45 03/16/20 05:00 03/16/20 07:40 Temperature 97.9 F Pulse Rate 81 Respiratory Rate 18 Blood Pressure 153/77 H Pulse Oximetry 95 95 94 03/16/20 08:00 Temperature 97.9 F Pulse Rate 93 H Respiratory Rate 18 Blood Pressure 146/71 H Pulse Oximetry 94 Oxygen Delivery Method Room Air Oxygen Flow Rate 0 Extrem Other: Right second toe with calus on the tip, on the side of the calus patient has small amount of fluid collection under the calused skin. There is no open wound, no drainage, no cellulitis. Objective Labs Result Diagrams: 03/16/20 05:15 03/14/20 10:55 Labs: Laboratory Results - last 24 hr 03/16/20 03/16/20 05:15 05:15 WBC 5.0 RBC 4.45 L Hgb 13.3 L Hct 39.9 L MCV 89.7 MCH 29.9 MCHC 33.4 RDW 12.8 Plt Count 116 L Neut % (Auto) Not Reportable Lymph % (Auto) Not Reportable [place] % (Auto) Not Reportable Eos % (Auto) Not Reportable Baso % (Auto) Not Reportable Lymph # (Auto) Not Reportable [place] # (Auto) Not Reportable Baso # (Auto) Not Reportable Total Counted 100 Seg Neutrophils % 37.0 L Band Neutrophils % 32.0 H Lymphocytes % (Manual) 14.0 L Atypical Lymphs % 6.0 H Monocytes % (Manual) 9.0 Eosinophils % (Manual) 2.0 Neutrophils # (Manual) 3450 RBC Morphology Normal morphology Procalcitonin 2.29 H Assessment & Plan Assessment & Plan narrative: Patient had chronic right foot injury from an object falling on it couple of months ago. His cellulitis is resolving with antibiotic. He has small fluid collection on tip of right second toe that is flucturant on exam. I obtained verbal consent and performed a bed side I&D. 0.5 cc of cloudy fluid was expressed and sent for culture. Patient's right foot was preped and draped using sterile technique. 11 blade was used to make incision over the fluid filled portion of the tip of toe. Fluid was expressed and culture was taken. The wound was then covered with dressing. 0.25% marcaine w/o epi was used to numb the toe. Patient tolerated the procedure well. Patient is cleared for discharge today with oral antibiotic. Patient need to call tomorrow to make appointment to be seen on for w ound check. Patient can weight bear as tolerated. Patient should perform daily warm soaks to allow the fluid to continue to drain to prevent recollection. Will follow wound culture and adjust antibiotic as needed.
--- NOTE | 2020-03-16 11:35 | CM.DPC ---
DCP: continued: case discussed today in Team Rounds with Dr. Martinez and Dr. Ravi/consulting. Dr. Ravi performed a bedside procedure on pt's foot and noted that pt was stable for d/c home today on oral antibiotics and with a followup appt as outpt with Dr. Ravi. Dr. Martinez has completed the orders now. Pt will d/c home today with his and followup as above.
--- NOTE | 2020-03-16 12:54 | P.DS_ITS ---
History of Present Illness History of Present Illness Chief complaint: Kidney pain since last night Narrative: Patient is a 79-year-old male with obesity but otherwise no chronic health problems presented to the emergency department with complaints of shaking chills since last night. He was feeling okay until last p.m. developed shaking chills which lasted all night and into this morning. He also noticed some back pain and thought it could be a kidney infection. In the ER he was found to have a red and swollen right 2nd toe extending to the distal foot. Patient states he dropped a 4 x 4 on his foot back in November. He has been applying Neosporin ointment often on and had not sought medical attention. He did notice some redness developing in the foot over the past couple of weeks. In ER he had low-grade temp of 100.3?, initial heart rate 118, normal to mildly hypertensive BP, normal respirations and O2 sat. Labs included mildly elevated WBC 11.5 with left shift, elevated procalcitonin 0.7, ESR 17 and CRP 1.5. Lactate is 1.5. He had normal urinalysis. Chest x-ray without infiltrate. Abdomen and pelvis CT without acute disease. Foot x-rays without evidence of fracture or osteomyelitis. He denies cough, dyspnea, abdominal pain, urinary difficulty. Patient received dose of IV antibiotic and admitted to hospital observation. Discharge Providers Provider Date of admission: 03/14/20 14:27 Discharge Date: 03/16/20 Primary care physician: Tristian Prater MD Consults: 03/16/20 09:51 Consult to Physician Routine Comment: Consulting Provider: Candice Ravi Reason for consultation: foot cellulitis Has provider been notified: Yes Discharge provider: Johnathan Martinez MD Summary Hospital Course Discharge Diagnosis: 1. Right foot cellulitis 2. Superficial abscess of right 2nd toe 3. Essential hypertension 4. Untreated obstructive sleep apnea Urogynecology Physician: Dr. Candice Ravi Hospital Course: Patient was treated with cephazolin for right foot cellulitis. The erythema quickly receded to wear it now just involves the distal toe. He had bedside incision and drainage of a superficial abscess on the distal toe associated with soft callus and nail fungus. There was drainage of small amount of pus which was sent for culture. Patient has been afebrile the last couple of days and able to be discharged on cephalexin. He will follow up in Ortho office in about 5 days. Status at Discharge Cognitive/behavioral status at discharge: oriented Functional status at discharge: independent ambulation Overall status at discharge: patient is not back to baseline Time Spent with Patient Time spent: Greater than 30 minutes Exam Vital Signs (past 8 hours): - 03/16/20 05:00 03/16/20 07:40 03/16/20 08:00 Temperature 97.9 F Pulse Rate 93 H Respiratory Rate 18 Blood Pressure 146/71 H Pulse Oximetry 95 94 94 Oxygen Delivery Method Room Air Oxygen Flow Rate 0 Objective Labs Result Diagrams: 03/16/20 05:15 03/14/20 10:55 Labs: Laboratory Results - last 24 hr 03/16/20 03/16/20 05:15 05:15 WBC 5.0 RBC 4.45 L Hgb 13.3 L Hct 39.9 L MCV 89.7 MCH 29.9 MCHC 33.4 RDW 12.8 Plt Count 116 L Neut % (Auto) Not Reportable Lymph % (Auto) Not Reportable [place] % (Auto) Not Reportable Eos % (Auto) Not Reportable Baso % (Auto) Not Reportable Lymph # (Auto) Not Reportable [place] # (Auto) Not Reportable Baso # (Auto) Not Reportable Total Counted 100 Seg Neutrophils % 37.0 L Band Neutrophils % 32.0 H Lymphocytes % (Manual) 14.0 L Atypical Lymphs % 6.0 H Monocytes % (Manual) 9.0 Eosinophils % (Manual) 2.0 Neutrophils # (Manual) 3450 RBC Morphology Normal morphology Procalcitonin 2.29 H Discharge Plan Discharge Plan Patient Disposition: Home Nursing Discharge Comment: Per Dr. Ravi, perform Betadine Solution soak on toe. (Small amount of Betadine in water), pat dry with gauze. Place gauze covering over toe and secure with tape and sock. If you are having difficulty removing gauze from wound when you are performing a dressing change, you may get wet the area of gauze that is sticking to the wound to help ease it off. Petroleum gauze may be placed on wound then dry gauze only if gauze is sticking to wound and ca using issue. Dr. Ravi prefers the wound have dry gauze only. Discharge orders & Medications Prescriptions: New cephalexin 500 mg capsule 500 mg PO TID Qty: 21 RF: 0 Continued hydrochlorothiazide 25 mg Tablet 25 mg PO DAILY RF: 0 potassium chloride 20 mEq Tablet Extended Release 20 meq PO DAILY RF: 0 Follow up/Referrals: Tristian Prater MD [Primary Care Provider] - Candice Ravi MD [Physician] - 3-5 Days (Please call TuesdayMarch 17 to make an appointment for March [address] Ravi's office.) Diet/Activity/Treatments Diet: Diet as Tolerated Skin/Wound/Dressing Care Report to your healthcare provider any signs of infection, such as:: chills, fever, increased pain, unusual drainage and unusual redness Visit Report/Discharge Packet Instructions: DI for Cellulitis -- Adult, How to Prevent Falls, Cephalexin, Skin Wound, How to Use Antibiotics Wisely Visit Report Forms: Patient Portal/API, Stroke Signs & Symptoms Discharge Data Primary Care Provider: Tristian Prater Quality VTE Deep Vein Thrombosis/Pulmonary Embolism Present on Admission: No
== END 2020-03-16 13:11 | disposition home or self-care (01) | DRG 603 ==
LOC: ED 13:55 → AC 14:38
PROVIDERS: Admitting Provider Internal Medicine; Emergency Provider Emergency Medicine; Family Provider Family Medicine; PCP Family Medicine; Referring Provider Emergency Medicine; Visit Provider Internal Medicine
DX: L03.115 Cellulitis of right lower limb (principal); L02.611 Cutaneous abscess of right foot; R93.89 Abnormal findings on diagnostic imaging of other specified body structures; R05 Cough; G47.30 Sleep apnea, unspecified; E66.9 Obesity, unspecified; Z68.32 Body mass index [BMI] 32.0-32.9, adult; F17.210 Nicotine dependence, cigarettes, uncomplicated; Z11.59 Encounter for screening for other viral diseases
CPT/HCPCS: 36415; 71045; 71250; 73630; 74177; 80053; 81003; 83605; 84145; 85025; 85651; 86140; 87040; 87070; 87077; 87086; 87147; 87186; 87205; 87635; 90471; 90662; 96361; 96365; 96375; 99284; 99406; J1650; J1885; Q9967

== ENCOUNTER 2022-03-22 09:34 | Observation (INO) | payer MEDICARE, OTHER, SELFPAY ==
[2020-03-14 17:07] VITALS: BMI 32.5
[2022-03-22] VITALS (27 sets, daily range): BP systolic 113–211; BP diastolic 58–105; PULSE 56–79; RESP 16–30; TEMP 36.1–36.4; O2SAT 93–97; BMI 27.0
--- NOTE | 2022-03-22 09:38 | DI.RAD.S_ITS ---
PROCEDURE: XR CHEST 1V INDICATIONS: Chest pain TECHNIQUE: One view of the chest was acquired. COMPARISON: [facility], CR, XR CHEST 1V, 03/14/2020, 10:28. FINDINGS: Surgical changes and devices: None. Lungs and pleura: Lungs are clear. No pleural effusions or pneumothorax. Mediastinum: Mediastinal contours appear normal. Heart size is normal. Bones and chest wall: No suspicious bony lesions. Overlying soft tissues appear unremarkable. IMPRESSION: No acute cardiopulmonary pathology. Dictated by: Kiko Reagan M.D. on 03/22/2022 at 10:05 Approved by: Kiko Reagan M.D. on 03/22/2022 at 10:09
--- NOTE | 2022-03-22 09:44 | ED.GENADULT ---
HPI - General Adult General Chief complaint: Chest Pain Stated complaint: chest pain Time Seen by Provider: 03/22/22 09:37 Source: patient Mode of arrival: Ambulatory Limitations: no limitations History of Present Illness HPI narrative: 81-year-old male. History of hypertension. Was diagnosed with Parkinson's disease earlier this year as well. No prior cardiac history. Not on anticoagulation. Has been taking his medications as directed. Here for evaluation of chest discomfort. It started in his lower left chest at approximately 0230 in the morning which was 7 hours ago. He does have nitro at home. 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 He took the nitro. He thought that it did help his symptoms somewhat however it has returned since then. He is currently asymptomatic. He is also having shortness of breath. No underlying diagnosed lung pathology. He also states that there was something behind by heart ?that was found earlier and he is scheduled to have a CT scan on Tuesday of this week to further evaluate this. All of these imaging studies were done at an outside facility. He does not know exactly what was going on with this finding. Related Data Home Medications Medication Instructions Recorded Confirmed hydrochlorothiazide 25 mg tablet 25 mg PO DAILY 03/15/20 03/15/20 potassium chloride 20 mEq 20 meq PO DAILY 03/15/20 03/15/20 tablet,extended release Allergies Allergy/AdvReac Type Severity Reaction Status Date / Time No Known Drug Allergies Allergy Unknown Verified 03/22/22 09:45 Review of Systems Review of Systems ROS Unobtainable: All systems reviewed & are unremarkable except as noted in HPI and below Patient History Medical History Cellulitis Hypertension Parkinsons disease Social History household members: spouse Smoking Status: Former smoker Smoking Status: Former smoker alcohol intake frequency: holidays/special occasions only Substance Use Type: does not use Exam Initial Vital Signs Initial Vital Signs: Vital Signs Temperature 97.5 F L 03/22/22 09:42 Pulse Rate 70 03/22/22 09:42 Respiratory Rate 30 H 03/22/22 09:42 Blood Pressure 187/99 H 03/22/22 09:42 Pulse Oximetry 95 03/22/22 09:42 Oxygen Delivery Method 03/22/22 09:42 Const General: cooperative and No in distress HENID Head: normal to inspection and normocephalic Eyes General: Yes appearance normal, both eyes and all related structures Chest Chest: No crepitus and No tenderness Resp Effort & Inspection: no cough, no grunting, not labored, no respiratory distress, no retractions and tachypneic Auscultation: clear to auscultation bilaterally, no rhonchi and no wheezes Cardio Rate: regular rate Rhythm: regular rhythm GI Inspection: normal to inspection and non-distended Skin General: no rashes or lesions noted Neuro General: patient alert, patient awake and moves all extremities Extrem General: No edema Psych Appearance: grossly normal and well kempt Scores HEART Score Heart Score history: Moderately Suspicious Heart Score EKG: Normal Heart Score Age: > or = 65 years old Heart Score risk factors: 1-2 risk factors Heart Score troponin: < or = to normal limit Heart Score Total: 4 Course Orders Ordered: ED Orders 03/22/22 09:38 XR chest 1V Stat 03/22/22 09:45 COVID19 -Nasal RAPID/Pre-Proc Stat Complete Blood Count AUTO DIFF Stat Comprehensive Metabolic Panel Stat Lipase Stat NT-proBNP (BNP-Adult 18+) Stat Partial Thromboplastin Time Stat Prothrombin Time INR Stat Troponin & CK Cardiac Panel Stat 03/22/22 09:46 EKG-12 Lead Stat 03/22/22 10:05 CT angio chest abdomen pelvis Stat 03/22/22 12:44 Troponin & CK Cardiac Panel Stat Sodium Chloride (Normal Saline 0.9%) 1,000 mls @ 125 mls/hr IV CONT ANCA Last Admin: 03/22/22 09:52 Dose: 125 mls/hr Documented By: ELSA Discontinued Medications Aspirin (Aspirin 81 Mg Chew Tab) 324 mg PO NOW ONE Stop: 03/22/22 09:44 Last Admin: 03/22/22 09:51 Dose: 324 mg Documented By: ELSA Vital Signs Vital signs: Vital Signs - 8 hr 03/22/22 09:42 03/22/22 09:42 03/22/22 09:42 Temperature 97.5 F L Pulse Rate 70 79 Respiratory Rate 30 H 22 Blood Pressure 187/99 H 211/105 H Pulse Oximetry 95 96 Oxygen Delivery Method Room Air 03/22/22 09:45 03/22/22 09:45 03/22/22 10:00 Temperature Pulse Rate 69 Respiratory Rate Blood Pressure 187/99 H 166/84 H Pulse Oximetry 97 Oxygen Delivery Method Room Air 03/22/22 10:00 03/22/22 10:15 03/22/22 10:15 Temperature Pulse Rate 64 65 Respiratory Rate 22 25 H Blood Pressure 164/84 H Pulse Oximetry 94 93 Oxygen Delivery Method 03/22/22 10:30 03/22/22 10:30 03/22/22 10:45 Temperature Pulse Rate 62 61 Respiratory Rate 21 23 Blood Pressure 163/81 H Pulse Oximetry 93 93 Oxygen Delivery Method 03/22/22 10:45 03/22/22 11:08 03/22/22 11:09 Temperature Pulse Rate 62 62 Respiratory Rate 25 H 22 Blood Pressure 149/78 H Pulse Oximetry 94 95 Oxygen Delivery Method 03/22/22 11:09 03/22/22 11:16 03/22/22 11:16 Temperature Pulse Rate 60 Respiratory Rate 22 Blood Pressure 174/76 H 113/58 L Pulse Oximetry 96 Oxygen Delivery Method Room Air 03/22/22 11:30 03/22/22 11:30 03/22/22 11:45 Temperature Pulse Rate 56 L 57 L Respiratory Rate 21 21 Blood Pressure 167/77 H Pulse Oximetry 96 95 Oxygen Delivery Method 03/22/22 11:45 03/22/22 12:00 03/22/22 12:00 Temperature Pulse Rate 58 L Respiratory Rate 21 Blood Pressure 146/67 H 149/68 H Pulse Oximetry 95 Oxygen Delivery Method 03/22/22 12:15 03/22/22 12:15 03/22/22 12:30 Temperature Pulse Rate 59 L Respiratory Rate 29 H Blood Pressure 157/84 H 143/64 H Pulse Oximetry 93 Oxygen Delivery Method 03/22/22 12:30 03/22/22 12:45 03/22/22 12:45 Temperature Pulse Rate 59 L 61 Respiratory Rate 22 24 Blood Pressure 152/72 H Pulse Oximetry 94 94 Oxygen Delivery Method Room Air 03/22/22 13:00 03/22/22 13:00 03/22/22 13:15 Temperature Pulse Rate 58 L 58 L Respiratory Rate 22 28 H Blood Pressure 138/63 Pulse Oximetry 94 97 Oxygen Delivery Method Room Air 03/22/22 13:15 03/22/22 13:30 03/22/22 13:30 Temperature Pulse Rate 60 Respiratory Rate 24 Blood Pressure 141/68 H 193/84 H Pulse Oximetry 95 Oxygen Delivery Method 03/22/22 13:45 03/22/22 13:45 03/22/22 14:00 Temperature Pulse Rate 61 Respiratory Rate 25 H Blood Pressure 143/75 H 145/68 H Pulse Oximetry 96 Oxygen Delivery Method 03/22/22 14:00 03/22/22 14:15 03/22/22 14:15 Temperature Pulse Rate 60 57 L Respiratory Rate 25 H 26 H Blood Pressure 131/67 Pulse Oximetry 96 95 Oxygen Delivery Method Medical Decision Making Lab Data Lab results reviewed: Yes I reviewed the patient's lab results. Result diagrams: 03/22/22 09:45 03/22/22 09:45 Labs: Lab Results 03/22/22 03/22/22 03/22/22 Range/Units 09:45 09:45 09:45 WBC 6.7 (4.5-11.0) X10^3/uL RBC 4.91 (4.5-5.9) X10^6/uL Hgb 15.1 (13.5-17.5) g/dL Hct 44.4 (41-53) % MCV 90.3 (80-100) fL MCH 30.7 (26-34) PG MCHC 33.9 (30-36) % RDW 13.7 (11.6-14.8) % Plt Count 153 (150-400) X10^3/uL Neut % (Auto) 61.0 (50-75) % Lymph % (Auto) 23.8 L (25-40) % [place] % (Auto) 12.4 (3-14) % Eos % (Auto) 2.1 (2-4) % Baso % (Auto) 0.7 (0-2) % Neut # (Auto) 4100 (1464-9228) /uL Lymph # (Auto) 1600 (4866-9135) /uL [place] # (Auto) 800 (0-900) /uL Eos # (Auto) 100 (0-450) /uL Baso # (Auto) 0 (0-100) /uL PT 12.4 (10.1-12.7) SECONDS INR 1.1 (0.9-1.3) APTT 32 (26-36) SECONDS Sodium 140 (137-145) mmol/L Potassium 4.1 (3.4-5.1) mmol/L Chloride 103 (98-107) mmol/L Carbon Dioxide 29 (22-32) mmol/L BUN 15 (9-20) mg/dL Creatinine 0.86 (0.66-1.25) mg/dL Estimated GFR > 60 (>60) mL/min BUN/Creatinine Ratio 17.4 (6-22) Glucose 90 (80-110) mg/dL Calcium 8.7 (8.4-10.2) mg/dL Total Bilirubin 0.5 (0.2-1.3) mg/dL AST 26 (17-59) IU/L ALT 12 (<50) IU/L Alkaline Phosphatase 77 (38-126) U/L Total Creatine Kinase 77 (55-170) U/L CK-MB (CK-2) TNP CK-MB (CK-2) Rel Index TNP Troponin I < 0.012 (0.01-0.034) ng/mL NT-Pro-B Natriuret Pep (<450) pg/mL Total Protein 7.5 (6.3-8.2) g/dL Albumin 3.9 (3.5-5.0) g/dL Globulin 3.6 (1.7-4.1) g/dL Albumin/Globulin Ratio 1.1 (1.0-2.8) Lipase 78 (23-300) U/L SARS-CoV-2 (PCR) (Negative) 03/22/22 03/22/22 03/22/22 Range/Units 09:45 09:45 12:44 WBC (4.5-11.0) X10^3/uL RBC (4.5-5.9) X10^6/uL Hgb (13.5-17.5) g/dL Hct (41-53) % MCV (80-100) fL MCH (26-34) PG MCHC (30-36) % RDW (11.6-14.8) % Plt Count (150-400) X10^3/uL Neut % (Auto) (50-75) % Lymph % (Auto) (25-40) % [place] % (Auto) (3-14) % Eos % (Auto) (2-4) % Baso % (Auto) (0-2) % Neut # (Auto) (9260-5377) /uL Lymph # (Auto) (6700-6328) /uL [place] # (Auto) (0-900) /uL Eos # (Auto) (0-450) /uL Baso # (Auto) (0-100) /uL PT (10.1-12.7) SECONDS INR (0.9-1.3) APTT (26-36) SECONDS Sodium (137-145) mmol/L Potassium (3.4-5.1) mmol/L Chloride (98-107) mmol/L Carbon Dioxide (22-32) mmol/L BUN (9-20) mg/dL Creatinine (0.66-1.25) mg/dL Estimated GFR (>60) mL/min BUN/Creatinine Ratio (6-22) Glucose (80-110) mg/dL Calcium (8.4-10.2) mg/dL Total Bilirubin (0.2-1.3) mg/dL AST (17-59) IU/L ALT (<50) IU/L Alkaline Phosphatase (38-126) U/L Total Creatine Kinase 67 (55-170) U/L CK-MB (CK-2) TNP CK-MB (CK-2) Rel Index TNP Troponin I < 0.012 (0.01-0.034) ng/mL NT-Pro-B Natriuret Pep 92 (<450) pg/mL Total Protein (6.3-8.2) g/dL Albumin (3.5-5.0) g/dL Globulin (1.7-4.1) g/dL Albumin/Globulin Ratio (1.0-2.8) Lipase (23-300) U/L SARS-CoV-2 (PCR) Negative (Negative) Imaging Data Chest x-ray: Radiologist's Impression: [address] [address] XRay Report Signed Patient: Mendel Pearson Jr MR#: [id number] : 1940 Acct:[id number] Age/Sex: 81 / M Date of Service: 03/22/22 Loc: ED Accession Number: [id number] ?? Procedure: XR chest 1V Ordering Provider: Nimesh Rios D.O. PROCEDURE:? XR CHEST 1V ? INDICATIONS:? Chest pain ? TECHNIQUE:? One view of the chest was acquired.? ? COMPARISON:? [facility], CR, XR CHEST 1V, 03/14/2020, 10:28. ? FINDINGS:? ? Surgical changes and devices:? None.? ? Lungs and pleura:? Lungs are clear.? No pleural effusions or pneumothorax.? ? Mediastinum:? Mediastinal contours appear normal.? Heart size is normal.? ? Bones and chest wall:? No suspicious bony lesions.? Overlying soft tissues appear unremarkable.? ? IMPRESSION:? No acute cardiopulmonary pathology. ? ? Dictated by: Kiko Reagan M.D. on 03/22/2022 at 10:05 ? ? Approved by: Kiko Reagan M.D. on 03/22/2022 at 10:09?? CTA chest/abd/pelvis: Radiologist's Impression: [place] [address] CT Scan Report Signed Patient: Mendel Pearson Jr MR#: [id number] : 1940 Acct:[id number] Age/Sex: 81 / M Date of Service: 03/22/22 Loc: ED Accession Number: [id number] ?? Procedure: CT angio chest abdomen pelvis Ordering Provider: Nimesh Rios D.O. PROCEDURE:? CT ANGIO CHEST ABDOMEN PELVIS ? INDICATIONS:? eval for aortic aneurysm ? TECHNIQUE:? Precontrast 5 mm thick sections acquired from the lung apices to the iliac crests.? After the administration of intravenous contrast, 2.5 mm thick sections again acquired from the lung apices to the iliac crests.? Maximum intensity projection (MIP) oblique sagittal and coronal reformats were then acquired.? For radiation dose reduction, the following was used:? automated exposure control.? ? COMPARISON:? None. ? FINDINGS:? Image quality:? Excellent.? ? AORTA:? The thoracoabdominal aorta demonstrates mild diffuse stenosis without evidence of aneurysm, nor dissection. ? CHEST:? Lungs and pleura:? No acute airspace opacities.? No pleural effusions or pneumothorax.? Central and peripheral airways are patent and normal in caliber.? ? Mediastinum:? Heart size is normal.? There is mild calcification of the coronary vasculature.? No pericardial effusion.? No mediastinal or hilar adenopathy by size criteria.? Central pulmonary arteries are normal in size.? Esophagus is normal in caliber.? No hiatal hernias.? ? Bones and chest wall:? No axillary adenopathy by size criteria.? There is a 21 mm low-density nodule within the right thyroid lobe posteriorly.? No suspicious bony lesions.? No vertebral body compression fractures.? ? ? ABDOMEN:? Vasculature:? Celiac trunk and mesenteric arteries are patent.? Renal arteries are also patent.? ? Solid organs:? Liver is normal in size and enhancement.? Gallbladder is surgically absent .? Biliary system is non dilated.? Pancreas enhances normally.? Spleen is normal in size and enhancement.? No adrenal nodules.? Both kidneys are normal in size and enhancement, without hydronephrosis.? ? Peritoneum and bowel:? No free fluid or air.? Bowel loops are normal in caliber and wall thickness.? ? Nodes and vessels:? No retroperitoneal or mesenteric adenopathy by size criteria.? Inferior vena cava is normal in morphology.? ? Miscellaneous:? There is a 40 mm diameter fat containing umbilical hernia. ? ? PELVIS:? Genitourinary:? Bladder wall thickness is normal.? ? Miscellaneous:? No inguinal hernias or adenopathy.? No ventral hernias.? ? Bones:? No suspicious bony lesions.? No vertebral body compression fractures.? ? ? IMPRESSION:? 1. No acute process involving the chest, abdomen, or pelvis. 2. Coronary artery disease. 3. Right thyroid nodule; initial further assessment with nonemergent outpatient follow-up ultrasound examination is recommended. 4. Fat containing umbilical hernia.? ? ? Dictated by: Opal Obrien M.D. on 03/22/2022 at 11:16 ? ? Approved by: Opal Obrien M.D. on 03/22/2022 at 11:19? ECG Data Attestation: I personally reviewed and interpreted this ECG as follows: Prior ECG tracings: available for review Interpretation: Sinus rhythm Ventricular rate is 68 Left axis deviation Left anterior fascicular block QRS 110 milliseconds Normal QTC No ST T wave changes Today's EKG unchanged from EKG in 2016 MDM Narrative Medical decision making narrative: EKG is unchanged from 2016. He has been asymptomatic since arrival here in the ER. Troponin is negative x2. CT scan of the chest was ordered because the patient states that his used building materials yard worker was concerned that there was something wrong with his aorta. There was no signs of dissection/aneurysms today. Patient did receive aspirin. He stated that he recently attempted an exercise stress test but was unable to complete it because he became short of breath before there was any diagnostic certainty of the test. He has not had any follow-up with cardiology since then. A discussion regarding risks and benefits of admission to the hospital versus discharge and outpatient further risk stratification the patient opted to be admitted to the hospital. Discussed the case with Dr. Cody with Internal Medicine. Dr. Cody will admit. Patient is aware and agreement. Admission provider was made aware the incidental finding of a thyroid nodule and the following needed. Discharge Plan Departure Patient Disposition: Admitted as Observation Clinical Impression: Thyroid nodule, Chest pain, rule out acute myocardial infarction
[2022-03-22] MEDS: ASPIRIN 81 MG CHEW TAB 324 MG PO (09:51)
[2022-03-22] MEDS: SODIUM CHLORIDE 0.9% 1,000 ML 125 ML IV (09:52)
[2022-03-22 09:55] LABS: Add Manual Diff / Slide Review NO; Basophils Absolute Auto 0 /uL (0-100); Basophils Percent Auto 0.7 % (0-2); Eosinophils Absolute Auto 100 /uL (0-450); Eosinophils Percent Auto 2.1 % (2-4); Hematocrit 44.4 % (41-53); Hemoglobin 15.1 g/dL (13.5-17.5); Lymphocytes Absolute Auto 1600 /uL (1100-4500); Lymphocytes Percent Auto 23.8 % (25-40); Mean Corpuscular HGB Conc 33.9 % (30-36); Mean Corpuscular Hemoglobin 30.7 PG (26-34); Mean Corpuscular Volume 90.3 fL (80-100); Monocytes Absolute Auto 800 /uL (0-900); Monocytes Percent Auto 12.4 % (3-14); Neutrophils Absolute Auto 4100 /uL (1500-7000); Platelet Count 153 X10^3/uL (150-400); Red Blood Cell Count 4.91 X10^6/uL (4.5-5.9); Red Cell Distribution Width 13.7 % (11.6-14.8); White Blood Cell Count 6.7 X10^3/uL (4.5-11.0)
[2022-03-22 10:02] LABS: INR 1.1 (0.9-1.3); Prothrombin Time 12.4 SECONDS (10.1-12.7)
[2022-03-22 10:05] LABS: PTT Partial Thromboplastin Tim 32 SECONDS (26-36)
--- NOTE | 2022-03-22 10:05 | DI.CT.S_ITS ---
PROCEDURE: CT ANGIO CHEST ABDOMEN PELVIS INDICATIONS: eval for aortic aneurysm TECHNIQUE: Precontrast 5 mm thick sections acquired from the lung apices to the iliac crests. After the administration of intravenous contrast, 2.5 mm thick sections again acquired from the lung apices to the iliac crests. Maximum intensity projection (MIP) oblique sagittal and coronal reformats were then acquired. For radiation dose reduction, the following was used: automated exposure control. COMPARISON: None. FINDINGS: Image quality: Excellent. AORTA: The thoracoabdominal aorta demonstrates mild diffuse stenosis without evidence of aneurysm, nor dissection. CHEST: Lungs and pleura: No acute airspace opacities. No pleural effusions or pneumothorax. Central and peripheral airways are patent and normal in caliber. Mediastinum: Heart size is normal. There is mild calcification of the coronary vasculature. No pericardial effusion. No mediastinal or hilar adenopathy by size criteria. Central pulmonary arteries are normal in size. Esophagus is normal in caliber. No hiatal hernias. Bones and chest wall: No axillary adenopathy by size criteria. There is a 21 mm low-density nodule within the right thyroid lobe posteriorly. No suspicious bony lesions. No vertebral body compression fractures. ABDOMEN: Vasculature: Celiac trunk and mesenteric arteries are patent. Renal arteries are also patent. Solid organs: Liver is normal in size and enhancement. Gallbladder is surgically absent . Biliary system is non dilated. Pancreas enhances normally. Spleen is normal in size and enhancement. No adrenal nodules. Both kidneys are normal in size and enhancement, without hydronephrosis. Peritoneum and bowel: No free fluid or air. Bowel loops are normal in caliber and wall thickness. Nodes and vessels: No retroperitoneal or mesenteric adenopathy by size criteria. Inferior vena cava is normal in morphology. Miscellaneous: There is a 40 mm diameter fat containing umbilical hernia. PELVIS: Genitourinary: Bladder wall thickness is normal. Miscellaneous: No inguinal hernias or adenopathy. No ventral hernias. Bones: No suspicious bony lesions. No vertebral body compression fractures. IMPRESSION: 1. No acute process involving the chest, abdomen, or pelvis. 2. Coronary artery disease. 3. Right thyroid nodule; initial further assessment with nonemergent outpatient follow-up ultrasound examination is recommended. 4. Fat containing umbilical hernia. Dictated by: Opal Obrien M.D. on 03/22/2022 at 11:16 Approved by: Opal Obrien M.D. on 03/22/2022 at 11:19
[2022-03-22 10:11] LABS: Alanine Aminotransferase 12 IU/L (<50); Albumin 3.9 g/dL (3.5-5.0); Albumin Globulin Ratio 1.1 (1.0-2.8); Alkaline Phosphatase 77 U/L (38-126); Aspartate Aminotransferase 26 IU/L (17-59); BUN Creatinine Ratio 17.4 (6-22); Bilirubin Total 0.5 mg/dL (0.2-1.3); Blood Urea Nitrogen 15 mg/dL (9-20); Calcium 8.7 mg/dL (8.4-10.2); Carbon Dioxide 29 mmol/L (22-32); Chloride 103 mmol/L (98-107); Creatine Kinase 77 U/L (55-170); Estimated Glomerular Filt Rate > 60 mL/min (>60); Globulin 3.6 g/dL (1.7-4.1); Glucose 90 mg/dL (80-110); HEMOLYSIS 15 (0-50); Lipase 78 U/L (23-300); Potassium 4.1 mmol/L (3.4-5.1); Sodium 140 mmol/L (137-145); Total Protein 7.5 g/dL (6.3-8.2)
[2022-03-22 10:20] LABS: NT-proBNP (BNP-Adult 18+) 92 pg/mL (<450)
[2022-03-22 10:23] LABS: Troponin I < 0.012 ng/mL (0.01-0.034)
[2022-03-22 11:11] LABS: COVID19 -Nasal RAPID Negative (Negative)
[2022-03-22 13:06] LABS: Creatine Kinase 67 U/L (55-170)
[2022-03-22 13:19] LABS: Troponin I < 0.012 ng/mL (0.01-0.034)
--- NOTE | 2022-03-22 15:15 | PM.HP.1 ---
History of Present Illness History of Present Illness Date Patient Seen: 03/22/22 Time Patient Seen: 15:00 Chief complaint: chest pain Narrative: Mr. Pearson is a 81M with PMH HTN, parkinsons who comes in to the hospital with chest pain and shortness of breath. He states he has been seeing a storekeeper steward for shortness of breath that is worse with activity. He was ordered for exercise stress test but could not complete due to fatigue. He has been planned for nuc stress test, but this is not ordered or scheduled currently. He woke up overnight with left sided chest discomfort. This improved with nitro. In the ED workup was done, vitals notable for tachypnea and high blood pressure. Labs notable for WBC 6.7, hgb 15.1, plts 153. INR 1.1. Creatinine 0.86. Trop negative x2. BNP 92. Chest xray with no acute process. CTA of chest showed no acute process, but right thyroid nodule incidentally noted. He was given aspirin and admitted for further treatment. Family history: father with CAD Patient History Medical History Cellulitis Hypertension Parkinsons disease Family & Social History Social History: household members spouse Safety & Behavioral: Feels Safe in Current Yes Environment Been Physically Hurt or No Threatened By a Person Tobacco & Substance use: Smoking Status Former smoker alcohol intake frequency holiday/special occasion Substance Use Type does not use Meds Home Medications and Allergies Home Medications Medication Instructions Recorded Confirmed Type hydrochlorothiazide 25 mg tablet 25 mg PO DAILY 03/15/20 03/15/20 History potassium chloride 20 mEq 20 meq PO DAILY 03/15/20 03/15/20 History tablet,extended release Allergies Allergy/AdvReac Type Severity Reaction Status Date / Time No Known Drug Allergies Allergy Unknown Verified 03/22/22 09:45 Review of Systems Review of Systems Narrative: 14 systems reviewed and negative aside from what is noted in HPI Exam Vital Signs (past 8 hours): - 03/22/22 09:42 03/22/22 09:42 03/22/22 09:42 Temperature 97.5 F L Pulse Rate 70 79 Respiratory Rate 30 H 22 Blood Pressure 187/99 H 211/105 H Pulse Oximetry 95 96 Oxygen Delivery Method Room Air 03/22/22 09:45 03/22/22 09:45 03/22/22 10:00 Temperature Pulse Rate 69 Respiratory Rate Blood Pressure 187/99 H 166/84 H Pulse Oximetry 97 Oxygen Delivery Method Room Air 03/22/22 10:00 03/22/22 10:15 03/22/22 10:15 Temperature Pulse Rate 64 65 Respiratory Rate 22 25 H Blood Pressure 164/84 H Pulse Oximetry 94 93 Oxygen Delivery Method 03/22/22 10:30 03/22/22 10:30 03/22/22 10:45 Temperature Pulse Rate 62 61 Respiratory Rate 21 23 Blood Pressure 163/81 H Pulse Oximetry 93 93 Oxygen Delivery Method 03/22/22 10:45 03/22/22 11:08 03/22/22 11:09 Temperature Pulse Rate 62 62 Respiratory Rate 25 H 22 Blood Pressure 149/78 H Pulse Oximetry 94 95 Oxygen Delivery Method 03/22/22 11:09 03/22/22 11:16 03/22/22 11:16 Temperature Pulse Rate 60 Respiratory Rate 22 Blood Pressure 174/76 H 113/58 L Pulse Oximetry 96 Oxygen Delivery Method Room Air 03/22/22 11:30 03/22/22 11:30 03/22/22 11:45 Temperature Pulse Rate 56 L 57 L Respiratory Rate 21 21 Blood Pressure 167/77 H Pulse Oximetry 96 95 Oxygen Delivery Method 03/22/22 11:45 03/22/22 12:00 03/22/22 12:00 Temperature Pulse Rate 58 L Respiratory Rate 21 Blood Pressure 146/67 H 149/68 H Pulse Oximetry 95 Oxygen Delivery Method 03/22/22 12:15 03/22/22 12:15 03/22/22 12:30 Temperature Pulse Rate 59 L Respiratory Rate 29 H Blood Pressure 157/84 H 143/64 H Pulse Oximetry 93 Oxygen Delivery Method 03/22/22 12:30 03/22/22 12:45 03/22/22 12:45 Temperature Pulse Rate 59 L 61 Respiratory Rate 22 24 Blood Pressure 152/72 H Pulse Oximetry 94 94 Oxygen Delivery Method Room Air 03/22/22 13:00 03/22/22 13:00 03/22/22 13:15 Temperature Pulse Rate 58 L 58 L Respiratory Rate 22 28 H Blood Pressure 138/63 Pulse Oximetry 94 97 Oxygen Delivery Method Room Air 03/22/22 13:15 03/22/22 13:30 03/22/22 13:30 Temperature Pulse Rate 60 Respiratory Rate 24 Blood Pressure 141/68 H 193/84 H Pulse Oximetry 95 Oxygen Delivery Method 03/22/22 13:45 03/22/22 13:45 03/22/22 14:00 Temperature Pulse Rate 61 Respiratory Rate 25 H Blood Pressure 143/75 H 145/68 H Pulse Oximetry 96 Oxygen Delivery Method 03/22/22 14:00 03/22/22 14:15 03/22/22 14:15 Temperature Pulse Rate 60 57 L Respiratory Rate 25 H 26 H Blood Pressure 131/67 Pulse Oximetry 96 95 Oxygen Delivery Method 03/22/22 14:30 03/22/22 14:30 03/22/22 14:45 Temperature Pulse Rate 59 L 64 Respiratory Rate 23 27 H Blood Pressure 137/71 Pulse Oximetry 94 97 Oxygen Delivery Method 03/22/22 14:45 03/22/22 15:00 03/22/22 15:01 Temperature Pulse Rate 60 59 L Respiratory Rate 26 H 22 Blood Pressure 186/80 H Pulse Oximetry 94 94 Oxygen Delivery Method 03/22/22 15:01 Temperature Pulse Rate Respiratory Rate Blood Pressure 143/66 H Pulse Oximetry Oxygen Delivery Method Oxygen Delivery Method Room Air Narrative Exam Narrative: GEN: no acute distress HEENT: moist mucous membranes, PERRL NECK: trachea midline, no JVD PULM: clear bilaterally, no wheezes, rhonchi rales CV: regular rate and rhythm, no murmurs, no tenderness to palpation ABD: soft, nontender, nondistended, no organomegaly, normal bowel sounds EXT: warm and well perfused, with 1+ edema at ankles NEURO: awake, alert, oriented, no focal deficits Objective Labs Result Diagrams: 03/22/22 09:45 03/22/22 09:45 Labs: Laboratory Results - last 24 hr 03/22/22 03/22/22 03/22/22 09:45 09:45 09:45 WBC 6.7 RBC 4.91 Hgb 15.1 Hct 44.4 MCV 90.3 MCH 30.7 MCHC 33.9 RDW 13.7 Plt Count 153 Neut % (Auto) 61.0 Lymph % (Auto) 23.8 L [place] % (Auto) 12.4 Eos % (Auto) 2.1 Baso % (Auto) 0.7 Neut # (Auto) 4100 Lymph # (Auto) 1600 [place] # (Auto) 800 Eos # (Auto) 100 Baso # (Auto) 0 PT 12.4 INR 1.1 APTT 32 Sodium 140 Potassium 4.1 Chloride 103 Carbon Dioxide 29 BUN 15 Creatinine 0.86 Estimated GFR > 60 BUN/Creatinine Ratio 17.4 Glucose 90 Calcium 8.7 Total Bilirubin 0.5 AST 26 ALT 12 Alkaline Phosphatase 77 Total Creatine Kinase 77 CK-MB (CK-2) TNP CK-MB (CK-2) Rel Index TNP Troponin I < 0.012 NT-Pro-B Natriuret Pep Total Protein 7.5 Albumin 3.9 Globulin 3.6 Albumin/Globulin Ratio 1.1 Lipase 78 SARS-CoV-2 (PCR) 03/22/22 03/22/22 03/22/22 09:45 09:45 12:44 WBC RBC Hgb Hct MCV MCH MCHC RDW Plt Count Neut % (Auto) Lymph % (Auto) [place] % (Auto) Eos % (Auto) Baso % (Auto) Neut # (Auto) Lymph # (Auto) [place] # (Auto) Eos # (Auto) Baso # (Auto) PT INR APTT Sodium Potassium Chloride Carbon Dioxide BUN Creatinine Estimated GFR BUN/Creatinine Ratio Glucose Calcium Total Bilirubin AST ALT Alkaline Phosphatase Total Creatine Kinase 67 CK-MB (CK-2) TNP CK-MB (CK-2) Rel Index TNP Troponin I < 0.012 NT-Pro-B Natriuret Pep 92 Total Protein Albumin Globulin Albumin/Globulin Ratio Lipase SARS-CoV-2 (PCR) Negative Assessment & Plan Assessment & Plan narrative: 1. Chest pain and shortness of breath -patient had previously been scheduled by cardiology for exercise, unable to complete due to fatigue and shortness of breath -EKG showed no ischemic changes, troponins negative -pain relieved with nitro -continue aspirin, statin -HEART score of 4-5, indicated to get stress test now -ordered for nuclear stress test 2. Parkinsons disease -continue home dose of sinement 3. Thyroid nodule -follow up as outpatient [facility] PCP 4. Hypertension -continue hctz CODE: Full Proxy: Becki Pearson, I have utilized all available resources to reconcile the patient's home medications Time Spent With Patient Critical Care time: I spent a total of [] minutes of critical care time on this patient's care today; this time is exclusive of procedural time.
[2022-03-22] MEDS: ATORVASTATIN 20 MG TABLET 40 MG PO (21:54)
[2022-03-23] VITALS (9 sets, daily range): BP systolic 113–155; BP diastolic 55–82; PULSE 53–60; RESP 16–20; TEMP 35.7–36.4; O2SAT 93–96
[2022-03-23 06:41] LABS: Add Manual Diff / Slide Review NO; Basophils Absolute Auto 0 /uL (0-100); Basophils Percent Auto 0.6 % (0-2); Eosinophils Absolute Auto 200 /uL (0-450); Eosinophils Percent Auto 3.4 % (2-4); Hematocrit 41.7 % (41-53); Hemoglobin 13.9 g/dL (13.5-17.5); Lymphocytes Absolute Auto 1400 /uL (1100-4500); Mean Corpuscular HGB Conc 33.3 % (30-36); Mean Corpuscular Volume 90.3 fL (80-100); Monocytes Absolute Auto 900 /uL (0-900); Monocytes Percent Auto 13.1 % (3-14); Neutrophils Absolute Auto 4000 /uL (1500-7000); Neutrophils Percent Auto 61.9 % (50-75); Platelet Count 141 X10^3/uL (150-400); Red Blood Cell Count 4.62 X10^6/uL (4.5-5.9); Red Cell Distribution Width 13.8 % (11.6-14.8); White Blood Cell Count 6.5 X10^3/uL (4.5-11.0)
[2022-03-23 06:48] LABS: BUN Creatinine Ratio 19.2 (6-22); Blood Urea Nitrogen 19 mg/dL (9-20); Calcium 8.4 mg/dL (8.4-10.2); Carbon Dioxide 32 mmol/L (22-32); Chloride 103 mmol/L (98-107); Estimated Glomerular Filt Rate > 60 mL/min (>60); Glucose 97 mg/dL (80-110); HEMOLYSIS < 15 (0-50); Potassium 4.6 mmol/L (3.4-5.1); Sodium 139 mmol/L (137-145)
[2022-03-23 07:01] LABS: Troponin I < 0.012 ng/mL (0.01-0.034)
[2022-03-23] MEDS: ASPIRIN EC 81 MG TABLET PO (08:56)
[2022-03-23] MEDS: ENOXAPARIN 40 MG/0.4 ML SYRINGE SUBCUT (08:56)
[2022-03-23] MEDS: CARBIDOPA-LEVODOPA 25/100 TABLET 1 EACH PO ×3 (09:35→21:10)
[2022-03-23] MEDS: PROPRANOLOL ER 60 MG CAPSULE PO (09:41)
[2022-03-23] MEDS: hydroCHLOROthiazide 25 MG TABLET PO (09:41)
--- NOTE | 2022-03-23 10:55 | PC.NURSE ---
Pt a&o voicing appropriate concerns about meds and plan for the day.
--- NOTE | 2022-03-23 11:19 | PM.PN.1 ---
Subjective Subjective Date Patient Seen: 03/23/22 Time Patient Seen: 08:00 Interval history: His chest pain has resolved. Exam Vital Signs (past 8 hours): - 03/23/22 04:31 03/23/22 08:00 03/23/22 07:00 Temperature 97.3 F L 97.4 F L Pulse Rate 53 L 54 L Respiratory Rate 17 17 Blood Pressure 113/61 130/61 Pulse Oximetry 93 95 94 Oxygen Delivery Method Nasal Cannula Oxygen Flow Rate 0 0 3 Fraction of Inspired Oxygen 32 SaO2/FiO2 Ratio 293 Oxygen Delivery Method Nasal Cannula Oxygen Flow Rate 0 Narrative Exam Narrative: GEN: no acute distress PULM: clear bilaterally, no wheezes, rhonchi rales CV: regular rate and rhythm, no murmurs, no tenderness to palpation ABD: soft, nontender, nondistended, no organomegaly, normal bowel sounds EXT: warm and well perfused, with 1+ edema at ankles Objective Labs Result Diagrams: 03/23/22 06:17 03/23/22 06:17 Labs: Laboratory Results - last 24 hr 03/22/22 03/23/22 03/23/22 12:44 06:17 06:17 WBC 6.5 RBC 4.62 Hgb 13.9 Hct 41.7 MCV 90.3 MCH 30.0 MCHC 33.3 RDW 13.8 Plt Count 141 L Neut % (Auto) 61.9 Lymph % (Auto) 21.0 L [place] % (Auto) 13.1 Eos % (Auto) 3.4 Baso % (Auto) 0.6 Neut # (Auto) 4000 Lymph # (Auto) 1400 [place] # (Auto) 900 Eos # (Auto) 200 Baso # (Auto) 0 Sodium Potassium Chloride Carbon Dioxide BUN Creatinine Estimated GFR BUN/Creatinine Ratio Glucose Calcium Total Creatine Kinase 67 CK-MB (CK-2) TNP CK-MB (CK-2) Rel Index TNP Troponin I < 0.012 < 0.012 03/23/22 06:17 WBC RBC Hgb Hct MCV MCH MCHC RDW Plt Count Neut % (Auto) Lymph % (Auto) [place] % (Auto) Eos % (Auto) Baso % (Auto) Neut # (Auto) Lymph # (Auto) [place] # (Auto) Eos # (Auto) Baso # (Auto) Sodium 139 Potassium 4.6 Chloride 103 Carbon Dioxide 32 BUN 19 Creatinine 0.99 Estimated GFR > 60 BUN/Creatinine Ratio 19.2 Glucose 97 Calcium 8.4 Total Creatine Kinase CK-MB (CK-2) CK-MB (CK-2) Rel Index Troponin I [facility] Medical History Cellulitis Hypertension Parkinsons disease Social History household members: spouse Smoking Status: Former smoker Assessment & Plan Assessment & Plan narrative: 1. Chest pain and shortness of breath -patient had previously been scheduled by cardiology for exercise, unable to complete due to fatigue and shortness of breath -EKG showed no ischemic changes, troponins negative -pain relieved with nitro -continue aspirin, statin -HEART score of 4-5, indicated to get stress test now -ordered for nuclear stress test 2. Parkinsons disease -continue home dose of sinement 3. Thyroid nodule -follow up as outpatient [facility] PCP 4. Hypertension -continue hctz Time Spent With Patient Critical Care time: I spent a total of [] minutes of critical care time on this patient's care today; this time is exclusive of procedural time. Quality VTE Deep Vein Thrombosis/Pulmonary Embolism Present on Admission: No
[2022-03-23] MEDS: ATORVASTATIN 20 MG TABLET 40 MG PO (21:10)
[2022-03-24 06:22] VITALS: BP 133/72; PULSE 70; RESP 17; TEMP 35.8; O2SAT 94
[2022-03-24 07:45] VITALS: O2SAT 94
[2022-03-24] MEDS: CARBIDOPA-LEVODOPA 25/100 TABLET 1 EACH PO ×2 (08:42→15:17)
[2022-03-24] MEDS: hydroCHLOROthiazide 25 MG TABLET PO (08:42)
[2022-03-24] MEDS: ENOXAPARIN 40 MG/0.4 ML SYRINGE SUBCUT (08:42)
[2022-03-24] MEDS: ASPIRIN EC 81 MG TABLET PO (08:42)
[2022-03-24] MEDS: PROPRANOLOL ER 60 MG CAPSULE PO (09:06)
--- NOTE | 2022-03-24 13:34 | PC.NURSE ---
Pt is dressed and ready for discharge home with daughter at 1630. IV and tele have been removed. Went over d/c instructions with Pt-discussed d/c meds, time of last dose, reviewed stroke education and follow up with his PCP. There are no new prescriptions. Discussed contacting PCP or going to ER if chest pain returns. Pt denied further questions and will be taken out to POV via w/c by [employer] INSTALLER with daughter and all belongings.
--- NOTE | 2022-03-24 15:29 | CM.IDA ---
Initial DCP Assessment Note Pt is a 81 yo male, resident of [facility], arrives w/Chest pain and shortness of breath PCP: José Miguel Weber Payer: BARBARA/Julio Reviewed chart, pt discussed in multidisciplinary rounds this morning. Patient discharging home today, EKG showed no ischemic changes, troponins negative, patient at functional baseline No barriers identified at this time to patient's safe discharge home w/family to assist; close outpatient f/u recommended. Transport via dtr's pov this afternoon [facility] [place]
--- NOTE | 2022-03-24 16:06 | PC.NURSE ---
Pt meds returned from pharmacy. Pt discharged out.
--- NOTE | 2022-03-24 17:16 | DI.NM.S_ITS ---
DATE OF SERVICE: 03/24/2022 PROCEDURE PERFORMED: Pharmacologic vasodilator stress and rest myocardial perfusion imaging with gating to assess ejection fraction and regional wall motion. ORDERING PROVIDER: Dr. Marco Cody. INDICATIONS: The patient is a 81-year-old male admitted with chest discomfort but a benign workup to date. CARDIAC STRESS: Per protocol, 0.4 mg of regadenoson was infused with a normal hemodynamic response. He had no chest discomfort or other anginal symptoms. His resting ECG shows sinus bradycardia at 49 BPM with a LAFB, but normal ST segments. With stress, there were no significant ST-segment shifts or arrhythmias. Per protocol, 28.0 millicuries of technetium-99m Myoview was injected and he was imaged 10 minutes later using a gated SPECT acquisition protocol. Earlier in the day while at rest, he was injected with 9.0 millicuries of technetium-99m Myoview and imaged 40 minutes later, again using a gated SPECT acquisition protocol. FINDINGS: 1. Raw data: There is fair myocardial tracer uptake with no significant motion artifact. The lung/heart ratio is mildly increased at 0.47, which can be a sign of pulmonary congestion. The TID ratio is normal at 1.07. 2. Quantitated gated SPECT: Post-stress ejection fraction is estimated at 71% without any focal wall motion abnormality and specifically the inferior wall appears to have normal contractility. The post-stress end-diastolic volume is 117 mL. The resting images could not be gated and therefore there is no functional data. 3. Myocardial perfusion imaging: Post-stress supine images show a moderate perfusion defect throughout the majority of the inferior wall in a pattern that would be consistent with diaphragmatic attenuation, supported by its complete resolution on the prone images, revealing a normal, homogeneous perfusion pattern. The resting images show an identical perfusion pattern without any significant improvement in the inferior wall perfusion defect, supporting the likelihood of diaphragmatic attenuation artifact. IMPRESSION: 1. Probable normal myocardial perfusion study. 2. Moderate, fixed inferior perfusion defect that resolves with prone imaging, most consistent with diaphragmatic attenuation artifact. While previous nontransmural myocardial infarction cannot be entirely excluded, the absence of any regional wall motion abnormality in this distribution would mitigate against this. 3. Normal left ventricular systolic function without any focal wall motion abnormality. The mildly increased lung/heart ratio suggests the possibility of pulmonary congestion but clinical correlation is recommended. 4. No angina or ECG evidence of ischemia with pharmacologic vasodilator stress. 5. Compared to the previous myocardial perfusion study from 09/30/2015, a similar perfusion pattern was seen with an inferior defect that resolved on prone imaging and no wall motion abnormality and this was felt to again reflect a diaphragmatic attenuation artifact. The previous ejection fraction was 82% with an end-diastolic volume of 109 mL, suggesting the absence of any significant change although the lung/heart ratio was lower at 0.38. Mendel Pearson Jr - ARGELIA/gino/evelyn doc#: [id number]/job#: [id number] dd: 03/24/2022 13:00:00 dt: 03/24/2022 16:41:00 DICTATING /COPIES TO: Arash Larsen MD COPIES MNE: LYSSA;
--- NOTE | 2022-03-24 18:17 | PM.DS.1 ---
History of Present Illness History of Present Illness Chief complaint: chest pain Narrative: Mr. Pearson is a 81M with PMH HTN, parkinsons who comes in to the hospital with chest pain and shortness of breath. He states he has been seeing a docking pilot for shortness of breath that is worse with activity. He was ordered for exercise stress test but could not complete due to fatigue. He has been planned for nuc stress test, but this is not ordered or scheduled currently. He woke up overnight with left sided chest discomfort. This improved with nitro. In the ED workup was done, vitals notable for tachypnea and high blood pressure. Labs notable for WBC 6.7, hgb 15.1, plts 153. INR 1.1. Creatinine 0.86. Trop negative x2. BNP 92. Chest xray with no acute process. CTA of chest showed no acute process, but right thyroid nodule incidentally noted. He was given aspirin and admitted for further treatment. Family history: father with CAD Discharge Providers Provider Date of admission: 03/22/22 14:59 Discharge Date: 03/24/22 Primary care physician: Tristian Pratre MD Discharge provider: Marco Cody MD Summary Hospital Course Discharge Diagnosis: 1. Chest pain 2. Parkinsons disease 3. Thyroid nodule 4. Hypertension Hospital Course: Mr. Pearson was admitted to the hospital for chest pain. He had previously been experiencing shortness of breath and was ordered for outpatient exercise stress test which he could not complete due to fatigue. He had a HEART score of 4-5. He did undergo nuclear stress test which was read as a low risk study. His chest pain resolved. He was discharged home with recommended follow up with his PCP within one week. He had a CTA of his chest done which incidentally noted a right tyroid nodule and recommend outpatient ultrasound nonemergently for further evaluation. Exam Vital Signs (past 8 hours): Fraction of Inspired Oxygen 32 SaO2/FiO2 Ratio 293 Oxygen Delivery Method Room Air Oxygen Flow Rate 0 Narrative Exam Narrative: GEN: no acute distress PULM: clear bilaterally, no wheezes, rhonchi rales CV: regular rate and rhythm, no murmurs, no tenderness to palpation ABD: soft, nontender, nondistended, no organomegaly, normal bowel sounds EXT: warm and well perfused, with trace edema at ankles Objective Labs Result Diagrams: 03/23/22 06:17 03/23/22 06:17 [facility] Medical History Cellulitis Hypertension Parkinsons disease Social History household members: spouse Smoking Status: Former smoker Discharge Plan Discharge Plan Patient Disposition: Home Provider Discharge Comment: Mr. Pearson came to the hospital with chest pain. His blood tests were reassuring, he had no heart attack. He had a stress test that was reassuring and he was able to be discharged home. Discharge orders & Medications Prescriptions: Continued meloxicam 15 mg tablet 15 mg PO DAILY propranolol 60 mg capsule,extended release 24 hr 60 mg PO DAILY nitroglycerin 0.4 mg tablet, sublingual 0.4 mg sublingual [id number] PRN (Reason: Chest Pain) carbidopa-levodopa 25-100 mg tablet 1 tab PO 0900,1500,2100 hydrochlorothiazide 25 mg Tablet 25 mg PO DAILY potassium chloride 20 mEq Tablet Extended Release 20 meq PO DAILY Follow up/Referrals: Tristian Prater MD [Primary Care Provider] - 03/31/22 2:20 pm (Appt:03/31 @ 2:20 w/ please arrive 15 minutes prior to your scheduled appointment time ) Diet/Activity/Treatments Diet: Regular Visit Report/Discharge Packet Instructions: High Blood Pressure, DI for Cardiac Stress Test, DI for Chest Pain Discharge Data Primary Care Provider: Tristian Prater Attending Provider: Marco Cody VTE Deep Vein Thrombosis/Pulmonary Embolism Present on Admission: No
== END 2022-03-24 16:05 | disposition home or self-care (01) ==
LOC: ED 14:33 → AC 15:00
PROVIDERS: Admitting Provider Internal Medicine; Emergency Provider Emergency Medicine; Family Provider Family Medicine; PCP Family Medicine; Referring Provider Emergency Medicine; Visit Provider Internal Medicine
DX: R07.9 Chest pain, unspecified (principal); Z20.822 Contact with and (suspected) exposure to COVID-19; I10 Essential (primary) hypertension; G20 Parkinson's disease; R06.02 Shortness of breath; E04.1 Nontoxic single thyroid nodule
CPT/HCPCS: 36415; 71045; 71275; 74174; 78452; 80048; 80053; 82550; 83690; 83880; 84484; 85025; 85610; 85730; 87635; 93005; 93010; 93017; 94760; 96360; 96361; 96372; 99285; C9803; G0378; A9502; J1650; J2785; Q9967

== ENCOUNTER → 2022-07-03 10:17 | Outpatient (CLI) | payer MEDICARE, OTHER, SELFPAY ==
[2022-03-22 15:38] VITALS: BMI 27.0
--- NOTE | 2022-07-03 10:19 | DI.CT.S_ITS ---
PROCEDURE: CT CHEST WO CON INDICATIONS: COUGH/ELEVATED DIAPHRAGM TECHNIQUE: Noncontrast 5 mm thick sections acquired from the pulmonary apices to the posterior costophrenic angles. 1 mm lung window, 5 mm thick coronal and sagittal and 7 mm axial MIP reformats were then acquired. For radiation dose reduction, the following was used: automated exposure control, adjustment of mA and/or kV according to patient size. COMPARISON: [facility], US, US FINE NEEDLE ASPIRATION THYROID, 06/09/2022, 11:22. [facility] Ultrasound, US, US THYROID, 04/23/2022, 7:47. [facility], CR, XR CHEST 1V, 03/22/2022, 9:51. CT, CT CHEST WO CON, 03/15/2020, 8:44. [facility], CT, CT ANGIO CHEST ABDOMEN PELVIS, 03/22/2022, 12:00. FINDINGS: Image quality: Excellent. Lungs and pleura: No acute air space opacities. No pleural effusions or pneumothorax. Central and peripheral airways are patent and normal in caliber. Elevation of the right hemidiaphragm is seen. Mediastinum: Heart size is normal. No pericardial effusion. No mediastinal adenopathy by size criteria. Thoracic aorta and central pulmonary arteries are normal in size. Esophagus is normal in caliber. There is a small hiatal hernia. Bones and chest wall: No suspicious bony lesions. No vertebral body compression fractures. Age-appropriate bony degenerative changes are seen. Mild levoconvex scoliotic curvature is noted. Accentuated thoracic kyphosis is seen. No axillary or supraclavicular adenopathy by size criteria. The previously seen right thyroid nodule is partially seen. Abdomen: Cholecystectomy clips are seen. Incidental note is made of an accessory splenule along the hilum of the primary spleen. The visualized portions of the upper abdominal structures are otherwise unremarkable for imaging technique. IMPRESSION: Clear lungs. No focal infiltrates are seen. Elevation of the right hemidiaphragm is seen. If there is strong clinical concern for paralysis of this hemidiaphragm, please consider a dedicated fluoroscopic sniff test for further evaluation. Additional findings: Right thyroid nodule Small hiatal hernia Cholecystectomy Accessory splenule Dictated by: Russel Osman M.D. on 07/03/2022 at 10:00 Approved by: Russel Osman M.D. on 07/03/2022 at 10:04
== END ==
PROVIDERS: Family Provider Family Medicine; PCP Family Medicine; Referring Provider Internal Medicine Pulmonary Disease; Visit Provider Internal Medicine Pulmonary Disease
DX: R05.9 Cough, unspecified (principal); J98.6 Disorders of diaphragm; E04.1 Nontoxic single thyroid nodule; K44.9 Diaphragmatic hernia without obstruction or gangrene; Z90.49 Acquired absence of other specified parts of digestive tract
CPT/HCPCS: 71250

== ENCOUNTER → 2022-09-21 09:55 | Outpatient (CLI) | payer MEDICARE, OTHER, SELFPAY ==
[2022-03-22 15:38] VITALS: BMI 27.0
--- NOTE | 2022-09-21 | PATH_ITS ---
Note [facility] Accession Number: [id number] TESTS RESULT FLAG UNITS REF RANGE LAB Clinician Provided Cytology Information No. of containers..01 Other (Miscellaneous) No. of containers..08 Previously Prepared Cytology Slide Source: RIGHT THYROID MID NODULE DIAGNOSIS: RIGHT THYROID MID NODULE NEGATIVE FOR MALIGNANT CELLS. [place] CATEGORY II. SPECIMEN CONSISTS OF BENIGN FOLLICULAR CELLS AND HEMOSIDERIN-LADEN MACROPHAGES, CONSISTENT WITH A BENIGN FOLLICULAR NODULE. Pathologist ICD10: E04.1 Signed out by: Agnieszka Zapata MD, Pathologist NPI- [id number] Performed by: Dk Izquierdo, Drier Operator Helper ([facility]) Gross description: 30 CC, PINK, CLEAR RECIEVED: IN CYTOLYT WITH 9 ALCOHOL FIXED AND 9 QUICK STAINED SLIDES ALSO 1 RNA VIAL WAS RECEIVED.VO /VDU 09/22/2022 0828 Local FLAG LEGEND: L-Low Normal,H-High Normal,LL-Alert Low,HH-Alert High <-Panic Low,>-Panic High,A-Abnormal,AA-Critical Abnormal Performed at: 01 =[facility] [address], [place] [address] Osmin Shook MD, Performed at: 01 [facility] [address], [place], [place] [id number] MD Osmin Shook MD Phone: [phone]
--- NOTE | 2022-09-21 | DI.US.S_ITS ---
PROCEDURE: US FINE NEEDLE ASPIRATION INDICATIONS: RIGHT THYROID MID NODULE REPEAT ASPIRATION TECHNIQUE: The indications, alternatives, benefits, risks, and complications of the procedure were explained to the patient. Written informed consent was obtained and placed in the chart. The area of interest was examined sonographically and a site was chosen for ultrasound guided percutaneous sampling. The skin was prepared and draped in the usual fashion, and anesthetized with 1% lidocaine infiltrated from the skin down to the lesion. Multiple passes were then performed, with contents emptied into an appropriate pathology specimen container. A bandage was applied to the area of access at completion of the study. Overall, this was a challenging biopsy due to the deep aspect of the nodule, as well as respiratory motion. COMPARISON: None. FINDINGS: Location(s) of lesion(s) sampled: Right midpole thyroid nodule. [place]: 25 gauge hypodermic needles. Number of passes: 9 Medications: 1% lidocaine for local anaesthesia. Complications: None. IMPRESSION: Successful ultrasound-guided right thyroid nodule fine needle aspiration, with cytology results pending. Note: This was technically challenging given the positioning and respiratory motion. If this biopsy fails, short-term follow-up versus thyroidectomy can be considered. Dictated by: Hank Gonzalez M.D. on 09/21/2022 at 17:12 Approved by: Hank Gonzalez M.D. on 09/21/2022 at 17:13
== END ==
PROVIDERS: Family Provider Family Medicine; PCP Family Medicine; Referring Provider Family Medicine; Visit Provider Family Medicine
DX: E04.1 Nontoxic single thyroid nodule (principal)
CPT/HCPCS: 10005

== ENCOUNTER 2024-09-25 12:17 | Emergency (ER) | payer MEDICARE, OTHER, SELFPAY ==
[2022-03-22 15:38] VITALS: BMI 27.0
[2024-09-25] VITALS (8 sets, daily range): BP systolic 141–170; BP diastolic 70–79; PULSE 59–75; RESP 21–24; TEMP 36.8; O2SAT 94–96; BMI 33.3
--- NOTE | 2024-09-25 12:41 | EKG_ITS ---
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
--- NOTE | 2024-09-25 12:53 | DI.CT.S_ITS ---
PROCEDURE: CT ANGIO CHEST ABDOMEN PELVIS INDICATIONS: Chest pain abdominal pain back pain seizure TECHNIQUE: Precontrast 5 mm thick sections acquired from the lung apices to the iliac crests. After the administration of intravenous contrast, 2.5 mm thick sections again acquired from the lung apices to the iliac crests. Maximum intensity projection (MIP) oblique sagittal and coronal reformats were then acquired. For radiation dose reduction, the following was used: automated exposure control. COMPARISON: [facility], CT, CT ANGIO CHEST ABDOMEN PELVIS, 03/22/2022, 12:00. FINDINGS: Image quality: Diagnostic. AORTA: No hemodynamically significant stenosis, vascular occlusion, aneurysmal dilation or dissection. Atherosclerotic calcifications are present. CHEST: Lower Neck: No enlarged lymph nodes. Thyroid: Unchanged low-attenuation foci. Axillae: No enlarged lymph nodes. Chest Wall: Unremarkable. Lungs and Pleura: No pneumothorax or pleural effusions. No consolidation or suspicious nodules. Heart: Heart size is normal. No pericardial effusion. Thoracic Vessels: Pulmonary arteries demonstrate normal size. Mediastinum and [place]: No enlarged lymph nodes. Esophagus: No wall thickening. Mild hiatal hernia. ABDOMEN: Liver: Unchanged low-attenuation hepatic foci. Gallbladder: Removed. Biliary ducts: No biliary dilation. Pancreas: No ductal dilation. Spleen: Size is within normal limits. Adrenal Glands: No adrenal nodules. Kidneys and Ureters: No hydronephrosis. Incidental note of retroaortic left renal vein. Stomach and Bowel: Normal colonic caliber, without significant wall thickening. Scattered colonic stool without inflammatory change. Peritoneum: No abnormal intraperitoneal fluid. No free air. Ventral Wall: Fat containing hernia. Abdominal Nodes: No retroperitoneal or mesenteric adenopathy by size criteria. Vessels: Inferior vena cava is normal in size. PELVIS: Pelvic Organs: Unremarkable. Bladder: Unremarkable. Pelvic Nodes: No enlarged lymph nodes. Miscellaneous: Bilateral fat containing inguinal hernias are seen. Bones: Multilevel thoracic and lumbar degenerative change. IMPRESSION: Aorta demonstrates no areas of hemodynamically significant stenosis, vascular occlusion or aneurysmal dilation. Atherosclerotic changes are present. Scattered colonic stool without obstruction. Dictated by: Zeynep Baca M.D. on 09/25/2024 at 13:24 Approved by: Zeynep Baca M.D. on 09/25/2024 at 13:29
--- NOTE | 2024-09-25 12:54 | ED_ITS ---
HPI - Seizure General Chief Complaint: Syncope Stated Complaint: Per possible seizure This morning Time Seen by Provider: 09/25/24 12:30 Source: patient and family Mode of arrival: Ambulatory Limitations: no limitations History of Present Illness HPI Narrative: Patient here with . Had witnessed seizure at home. No prior history of seizure. Patient only remembers walking up the steps with laundry and awakening on a recliner with his son they are. Son coincidentally came over to check up on him today. Patient denies any fall or injury. Denies pain anywhere. Denies any pre event headache chest pain abdominal any back pain. However, in the past month patient has had 5 episodes of generalized shaking without loss of consciousness. Patient does have history of Parkinson's and sees a neurologist in [place]. Patient is awake alert oriented x3 at this time. No seizure activity. Denies any new medications or stressors in life. Related Data Home Medications Medication Instructions Recorded Confirmed hydrochlorothiazide 25 mg tablet 25 mg PO DAILY 03/15/20 03/22/22 potassium chloride 20 mEq 20 meq PO DAILY 03/15/20 03/22/22 tablet,extended release carbidopa 25 mg-levodopa 100 mg 1 tab PO 0900,1500,2100 03/22/22 03/22/22 tablet meloxicam 15 mg tablet 15 mg PO DAILY 03/22/22 03/22/22 nitroglycerin 0.4 mg sublingual 0.4 mg sublingual [id number] PRN 03/22/22 03/22/22 tablet Chest Pain propranolol 60 mg capsule,24 60 mg PO DAILY 03/22/22 03/22/22 hr,extended release Previous Rx's Medication Instructions Recorded levetiracetam 750 mg tablet 750 mg PO BID #60 tabs 09/25/24 (Keppra) Allergies Allergy/AdvReac Type Severity Reaction Status Date / Time No Known Drug Allergies Allergy Unknown Verified 03/22/22 09:45 Review of Systems Review of Systems Narrative: GENERAL: Negative chills, fatigue, malaise, fever, sweats. HEENT: Negative sinus pain, ear pain, sore throat RESPIRATORY: Negative dyspnea, cough CARDIOVASCULAR: Negative chest pain, palpitations GASTROINTESTINAL: Negative vomiting, nausea, abdominal pain : Negative dysuria, frequency, hematuria MUSCULOSKELETAL: Negative muscle or bony pain SKIN: Negative rash, skin lesions NEUROLOGIC: Negative weakness, numbness, positive seizure ROS Unobtainable: All systems reviewed & are unremarkable except as noted in HPI and below Patient History Medical History Cellulitis Hypertension Parkinsons disease Social History household members: spouse Smoking Status: Never smoker Smoking Status: Never smoker alcohol intake frequency: holidays/special occasions only Exam Narrative Exam Narrative: GENERAL: in no distress, not toxic not dyspneic HEAD: Normocephalic. EYES: Pupils equal round ENT: Mucous membranes moist. No tongue abrasion or laceration or lip abrasion or laceration NECK: Trachea midline. CARDIOVASCULAR: Regular rate and rhythm RESPIRATORY: Clear to auscultation. Breath sounds equal bilaterally. No wheezes, rales, or rhonchi. GASTROINTESTINAL: Abdomen soft, non-tender EXTREMITIES: No gross deformities. BACK: No flank tenderness. NEURO: AOx4. Clear speech, no facial droop light touch intact to bilateral face hands and legs. 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 Fast exam is negative. Denies any headache. SKIN: Warm and dry PSYCH: Not anxious, is cooperative Initial Vital Signs Initial Vital Signs: Vital Signs Temperature 98.3 F 09/25/24 12:21 Pulse Rate 75 09/25/24 12:21 Respiratory Rate 24 09/25/24 12:21 Blood Pressure 156/73 H 09/25/24 12:21 Pulse Oximetry 94 09/25/24 12:21 Oxygen Delivery Method Room Air 09/25/24 12:21 Course Orders Ordered: ED Orders 09/25/24 12:35 EKG-12 Lead Stat RT Consult Eval and Treat NOW 09/25/24 12:48 Complete Blood Count AUTO DIFF Stat Comprehensive Metabolic Panel Stat Lactate (Lactic Acid) Stat Lipase Stat Magnesium Stat NT-proBNP (BNP-Adult 18+) Stat PTT Partial Thromboplastin Seferino Stat Prothrombin Time INR Stat Troponin & CK Cardiac Panel Stat 09/25/24 12:53 CT angio chest abdomen pelvis Stat CT head/brain wo con Stat Discontinued Medications Aspirin (Aspirin 81 Mg Chew Tab) 324 mg PO NOW ONE Stop: 09/25/24 12:36 Last Admin: 09/25/24 13:18 Dose: Not Given Documented By: CORY Levetiracetam 1,000 mg/ Sodium (Chloride) 110 mls @ 440 mls/hr IV NOW ONE Stop: 09/25/24 12:57 Last Infusion: 09/25/24 13:54 Dose: Infused Documented By: Admin: 09/25/24 13:32 Dose: 440 mls/hr Documented By: CORY Vital Signs Vital signs: Vital Signs - 8 hr 09/25/24 12:21 09/25/24 12:33 09/25/24 12:34 Temperature 98.3 F Pulse Rate 75 71 Respiratory Rate 24 24 Blood Pressure 156/73 H 167/79 H Pulse Oximetry 94 95 Oxygen Delivery Method Room Air 09/25/24 12:34 09/25/24 13:00 09/25/24 13:30 Temperature Pulse Rate 66 61 Respiratory Rate 21 21 Blood Pressure Pulse Oximetry 95 94 94 Oxygen Delivery Method 09/25/24 13:37 09/25/24 13:37 09/25/24 14:00 Temperature Pulse Rate 60 Respiratory Rate 23 Blood Pressure 153/76 H 170/76 H Pulse Oximetry 94 Oxygen Delivery Method 09/25/24 14:00 09/25/24 14:30 09/25/24 14:30 Temperature Pulse Rate 62 59 L Respiratory Rate 22 21 Blood Pressure 141/70 H Pulse Oximetry 96 96 Oxygen Delivery Method MDM - Seizure Lab Data 09/25/24 12:48 09/25/24 12:48 Labs: Lab Results 09/25/24 Range/Units 12:48 WBC 6.3 (4.5-11.0) X10^3/uL RBC 4.84 (4.5-5.9) X10^6/uL Hgb 14.9 (13.5-17.5) g/dL Hct 43.8 (41-53) % MCV 90.5 (80-100) fL MCH 30.8 (26-34) PG MCHC 34.1 (30-36) % RDW 13.6 (11.6-14.8) % Plt Count 160 (150-400) X10^3/uL Neut % (Auto) 72.4 (50-75) % Lymph % (Auto) 15.8 L (25-40) % [place] % (Auto) 10.0 (3-14) % Eos % (Auto) 1.4 L (2-4) % Baso % (Auto) 0.4 (0-2) % Neut # (Auto) 4600 (7262-9732) /uL Lymph # (Auto) 1000 L (4768-0215) /uL [place] # (Auto) 600 (0-900) /uL Eos # (Auto) 100 (0-450) /uL Baso # (Auto) 0 (0-100) /uL PT 12.6 H (9.4-12.5) SECONDS INR 1.1 (0.9-1.3) APTT 34 (25.1-36.5) SECONDS Sodium 142 (137-145) mmol/L Potassium 3.8 (3.4-5.1) mmol/L Chloride 108 H (98-107) mmol/L Carbon Dioxide 27 (22-32) mmol/L BUN 24 H (9-20) mg/dL Creatinine 0.95 (0.66-1.25) mg/dL Estimated GFR > 60 (>60) mL/min BUN/Creatinine Ratio 25.3 H (6-22) Glucose 101 H (70-99) mg/dL Lactate 1.4 (0.7-2.1) mmol/L Calcium 8.7 (8.4-10.2) mg/dL Magnesium 2.3 (1.6-2.3) mg/dL Total Bilirubin 0.5 (0.2-1.3) mg/dL AST 35 (17-59) IU/L ALT 22 (<50) IU/L Alkaline Phosphatase 68 (38-126) U/L Total Creatine Kinase 157 (55-170) U/L Troponin I < 0.012 (0.01-0.034) ng/mL NT-Pro-B Natriuret Pep 135 (<450) pg/mL Total Protein 6.5 (6.3-8.2) g/dL Albumin 3.9 (3.5-5.0) g/dL Globulin 2.6 (1.7-4.1) g/dL Albumin/Globulin Ratio 1.5 (1.0-2.8) Lipase 73 (23-300) U/L Imaging Data CT scan - head: Radiologist's Impression: [address] [address] [address] Scan Report Signed Patient: Mendel Pearson Jr MR#: [id number] : 1940 Acct:[id number] Age/Sex: 83 / M Date of Service: 09/25/24 Loc: ED Accession Number: [id number] Procedure: CT head/brain wo con Ordering Provider: Navdeep Rodriguez MD PROCEDURE: CT HEAD/BRAIN WO CON INDICATIONS: Altered mental status/seizure TECHNIQUE: Noncontrast 4.5 mm thick angled axial sections acquired from the foramen magnum to the vertex, with coronal and sagittal reformats. For radiation dose reduction, the following was used: automated exposure control, adjustment of mA and/or kV according to patient size. COMPARISON: None. FINDINGS: Image quality: Diagnostic. CSF spaces: Basal cisterns are patent. No extra-axial fluid collections. The ventricles are symmetric in size and shape. Brain: No intracranial bleeds or mass effect. There is cerebral volume loss, with resultant ventricular and sulcal prominence. There are periventricular and deep white matter chronic small vessel ischemic changes. There is intracranial internal carotid artery atherosclerosis. Skull and face: Calvarium and visualized facial bones appear intact, without suspicious lesions. Sinuses: Visualized sinuses and mastoids are clear. IMPRESSION: 1. No acute intracranial process. 2. Moderate atrophy and chronic microvascular ischemic changes. Dictated by: Zeynep Baca M.D. on 09/25/2024 at 13:24 Approved by: Zeynep Baca M.D. on 09/25/2024 at 13:24 CT chest abdomen and pelvis: Radiologist's Impression: [place] [address] CT Scan Report Signed Patient: Mendel Pearson Jr MR#: [id number] : 1940 Acct:[id number] Age/Sex: 83 / M Date of Service: 09/25/24 Loc: ED Accession Number: [id number] Procedure: CT head/brain wo con Ordering Provider: Navdeep Rodriguez MD PROCEDURE: CT HEAD/BRAIN WO CON INDICATIONS: Altered mental status/seizure TECHNIQUE: Noncontrast 4.5 mm thick angled axial sections acquired from the foramen magnum to the vertex, with coronal and sagittal reformats. For radiation dose reduction, the following was used: automated exposure control, adjustment of mA and/or kV according to patient size. COMPARISON: None. FINDINGS: Image quality: Diagnostic. CSF spaces: Basal cisterns are patent. No extra-axial fluid collections. The ventricles are symmetric in size and shape. Brain: No intracranial bleeds or mass effect. There is cerebral volume loss, with resultant ventricular and sulcal prominence. There are periventricular and deep white matter chronic small vessel ischemic changes. There is intracranial internal carotid artery atherosclerosis. Skull and face: Calvarium and visualized facial bones appear intact, without suspicious lesions. Sinuses: Visualized sinuses and mastoids are clear. IMPRESSION: 1. No acute intracranial process. 2. Moderate atrophy and chronic microvascular ischemic changes. Dictated by: Zeynep Baca M.D. on 09/25/2024 at 13:24 Approved by: Zeynep Baca M.D. on 09/25/2024 at 13:24 [facility] Narrative Medical decision making narrative: Patient here with . Had witnessed seizure at home. No prior history of seizure. Patient only remembers walking up the steps with laundry and awakening on a recliner with his son they are. Son coincidentally came over to check up on him today. Patient denies any fall or injury. Denies pain anywhere. Denies any pre event headache chest pain abdominal any back pain. However, in the past month patient has had 5 episodes of generalized shaking without loss of consciousness. Patient does have history of Parkinson's and sees a neurologist in [place]. Patient is awake alert oriented x3 at this time. No seizure activity. Denies any new medications or stressors in life. After history and exam, seizure precaution front desk monitor EKG lactic acid CBC CMP CT head CT angio chest abdomen pelvis [facility] Medical records reviewed: No recent visit for this complaint Differential considered: Includes but not limited to new onset seizure Parkinson's aortic dissection Lab Test results independently reviewed as above. Pertinent findings: WBC 6.5 hemoglobin 13.9 sodium 139 potassium 4.6 BUN 19 creatinine 0.99 GFR greater than 60 glucose 97, lactic acid 1.4 magnesium 2.3 Independently reviewed EKG sinus rhythm rate 64 Imaging studies independently reviewed: CT head no acute finding. CT angiogram chest abdomen pelvis no acute finding Consultations: 2:16 p.m.. I spoke with [place] neurology Dr. Aponte, he recommend starting Keppra 750 mg twice a day. He will secure chat on epic to patient's neurologist dr chang, regarding treatment plan and patient's visit here for appropriate follow up Re-evaluations: 2:20 p.m.. Updated patient and family, son at bedside now, my discussion with patient's neurology team. Also reviewed the results. Uncertain source of his seizure at this time but can be worked up outpatient. He knows no operating machinery or driving until cleared by his neurologist. It is a state law. He does agree for new prescription for Keppra. Discussion: Appropriate for discharge home. Exam is reassuring. Return precautions reviewed patient. Patient is Neurology group was contacted. They desire discharge home. at bedside now. They do understand no driving or operating machinery until evaluated by their provider and approved Diagnosis: New onset seizure Discharge Plan Departure Patient Disposition: Home Clinical Impression: New onset seizure Instructions: DI for Seizure Disorder -- Adult Activity Restrictions/Additional Instructions: You likely had a seizure. Your neurology team was contacted today. Prescription has been provided for you until you see your neurologist. Your exam and laboratory studies are reassuring at this time. The source of the seizure needs to be reviewed with your neurologist. No driving operating machinery until approved by your neurologist or provider. Return if worse if any questions or concerns. Prescriptions: New levetiracetam [Keppra] 750 mg tablet 750 mg PO BID Qty: 60 0RF No Action meloxicam 15 mg tablet 15 mg PO DAILY propranolol 60 mg capsule,extended release 24 hr 60 mg PO DAILY nitroglycerin 0.4 mg tablet, sublingual 0.4 mg sublingual [id number] PRN (Reason: Chest Pain) carbidopa-levodopa 25-100 mg tablet 1 tab PO 0900,1500,2100 hydrochlorothiazide 25 mg Tablet 25 mg PO DAILY potassium chloride 20 mEq Tablet Extended Release 20 meq PO DAILY Referrals: Tristian Prater MD [Primary Care Provider] - Stand Alone Forms: Patient Portal/API/Survey
[2024-09-25 13:11] LABS: Add Manual Diff / Slide Review NO; Basophils Absolute Auto 0 /uL (0-100); Basophils Percent Auto 0.4 % (0-2); Eosinophils Absolute Auto 100 /uL (0-450); Eosinophils Percent Auto 1.4 % (2-4); Hematocrit 43.8 % (41-53); Hemoglobin 14.9 g/dL (13.5-17.5); Lymphocytes Absolute Auto 1000 /uL (1100-4500); Lymphocytes Percent Auto 15.8 % (25-40); Mean Corpuscular HGB Conc 34.1 % (30-36); Mean Corpuscular Hemoglobin 30.8 PG (26-34); Mean Corpuscular Volume 90.5 fL (80-100); Monocytes Absolute Auto 600 /uL (0-900); Neutrophils Absolute Auto 4600 /uL (1500-7000); Neutrophils Percent Auto 72.4 % (50-75); Platelet Count 160 X10^3/uL (150-400); Red Blood Cell Count 4.84 X10^6/uL (4.5-5.9); Red Cell Distribution Width 13.6 % (11.6-14.8); White Blood Cell Count 6.3 X10^3/uL (4.5-11.0)
[2024-09-25 13:18] LABS: INR 1.1 (0.9-1.3); Prothrombin Time 12.6 SECONDS (9.4-12.5)
[2024-09-25 13:20] LABS: PTT Partial Thromboplastin Tim 34 SECONDS (25.1-36.5)
[2024-09-25 13:23] LABS: Alanine Aminotransferase 22 IU/L (<50); Albumin 3.9 g/dL (3.5-5.0); Albumin Globulin Ratio 1.5 (1.0-2.8); Alkaline Phosphatase 68 U/L (38-126); Aspartate Aminotransferase 35 IU/L (17-59); BUN Creatinine Ratio 25.3 (6-22); Bilirubin Total 0.5 mg/dL (0.2-1.3); Blood Urea Nitrogen 24 mg/dL (9-20); Calcium 8.7 mg/dL (8.4-10.2); Carbon Dioxide 27 mmol/L (22-32); Chloride 108 mmol/L (98-107); Creatine Kinase 157 U/L (55-170); Estimated Glomerular Filt Rate > 60 mL/min (>60); Globulin 2.6 g/dL (1.7-4.1); Glucose 101 mg/dL (70-99); HEMOLYSIS < 15 (0-50); Lactate (Lactic Acid) 1.4 mmol/L (0.7-2.1); Lipase 73 U/L (23-300); Magnesium 2.3 mg/dL (1.6-2.3); Potassium 3.8 mmol/L (3.4-5.1); Sodium 142 mmol/L (137-145); Total Protein 6.5 g/dL (6.3-8.2)
[2024-09-25] MEDS: levETIRAcetam 1,000 MG in SODIUM CHLORIDE 0.9% 100 ML 440 MG IV (13:32)
[2024-09-25 13:35] LABS: NT-proBNP (BNP-Adult 18+) 135 pg/mL (<450); Troponin I < 0.012 ng/mL (0.01-0.034)
== END 2024-09-25 14:40 | disposition home or self-care (01) ==
PROVIDERS: Emergency Provider Emergency Medicine; Family Provider Family Medicine; PCP Family Medicine
DX: R56.9 Unspecified convulsions (principal); R41.82 Altered mental status, unspecified
CPT/HCPCS: 36415; 70450; 71275; 74174; 80053; 82550; 83605; 83690; 83735; 83880; 84484; 85025; 85610; 85730; 93005; 93010; 96365; 99284; J1953; Q9967

== ENCOUNTER 2024-11-17 11:39 | Emergency (ER) | payer OTHER, SELFPAY ==
[2022-03-22 15:38] VITALS: BMI 27.0
[2024-11-17] VITALS (9 sets, daily range): BP systolic 129–159; BP diastolic 67–72; PULSE 55–75; RESP 18–23; TEMP 36.3; O2SAT 93–96; BMI 32.5
--- NOTE | 2024-11-17 11:58 | DI.CT.S_ITS ---
PROCEDURE: CT ABDOMEN PELVIS W CON INDICATIONS: abd pain TECHNIQUE: After the administration of intravenous contrast, axial sections acquired from the lung bases to the pubic symphysis. Coronal and sagittal reformats were performed. For radiation dose reduction, the following was used: automated exposure control, adjustment of mA and/or kV according to patient size. COMPARISON: [facility], CT, CT ABDOMEN PELVIS W CON, 03/14/2020, 11:33. [facility], CT, CT ANGIO CHEST ABDOMEN PELVIS, 09/25/2024, 13:06. FINDINGS: Image quality: Diagnostic Lower chest: Mild focal opacity at the right costophrenic angle. Normal heart size. Liver: Segment 5 probable liver cyst. Subcentimeter lesions are present, too small to characterize, probably also cysts Gallbladder and biliary system: Cholecystectomy clips, ectatic biliary system again seen likely related to postsurgical state Pancreas: No ductal dilation Spleen: Nonenlarged Adrenals: No discrete nodules Kidneys: No solid renal mass or hydronephrosis Vessels and lymph nodes: The main portal vein appears patent. No abdominal aortic aneurysm. Atherosclerotic calcifications are seen of the aorta and its branches. There are no enlarged lymph nodes identified by size criteria. Bowel and peritoneum: Trace hiatal hernia. No small bowel obstruction. No drainable abscess or ascites. [id number] rectal wall thickening. Colonic diverticulosis. Moderate focal thickening is seen at the hepatic flexure of the colon and cecum. Body wall: Bowel containing umbilical hernia without obstruction Pelvis: Small fat containing inguinal hernias. Under distended urinary bladder, with wall thickening, not well assessed. Bones: No aggressive appearing osseous abnormality. There are degenerative changes. IMPRESSION: Probable mild segmental areas of colitis and proctitis. More focal wall thickening seen along the hepatic flexure and cecum. Colonoscopy correlation is recommended to ensure there is no underlying mass, if not recently obtained. Colonic diverticulosis without focal diverticular inflammation. No small bowel obstruction. No drainable abscess or ascites. Mild focal opacity in the right lower lung, probably infectious/inflammatory. Bowel containing midline ventral hernia without obstruction. Other findings above. Dictated by: Alexandr Vazquez M.D. on 11/17/2024 at 12:43 Approved by: Alexandr Vazquez M.D. on 11/17/2024 at 12:48
--- NOTE | 2024-11-17 12:34 | EKG_ITS ---
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
[2024-11-17 12:37] LABS: Add Manual Diff / Slide Review NO; Hematocrit 44.4 % (41-53); Hemoglobin 15.1 g/dL (13.5-17.5); Lymphocytes Absolute Auto 1400 /uL (1100-4500); Mean Corpuscular HGB Conc 34.1 % (30-36); Mean Corpuscular Hemoglobin 31.1 PG (26-34); Mean Corpuscular Volume 91.2 fL (80-100); Platelet Count 180 X10^3/uL (150-400)
--- NOTE | 2024-11-17 12:37 | ED_ITS ---
HPI - Abdominal Pain General Chief Complaint: Abdominal Pain Stated Complaint: Obstructed bowel (7days); uncomforatble Time Seen by Provider: 11/17/24 11:47 Source: patient Mode of arrival: Ambulatory History of Present Illness HPI narrative: 84-year-old gentleman history of Parkinson's recently switch from Keppra to lamotrigine started to have constipation symptoms 5 7 days ago since the switch. He has tried Metamucil MiraLax Dulcolax which has helped some but then in the mornings he feels like it is still backed up and he is not able to go completely. He denies fever, chills, nausea, vomiting, urinary complaints, abdominal pain, or back pain. Other than what is stated 14 point review of system is negative. Related Data Home Medications ?Medication ?Instructions ?Recorded ?Confirmed hydrochlorothiazide 25 mg tablet 25 mg PO DAILY 03/22/22 potassium chloride 20 mEq 20 meq PO DAILY 03/15/2012/04 tablet,extended release carbidopa 25 mg-levodopa 100 mg 1 tab PO 0900,1500,210 0 03/22/22 03/22/22 tablet meloxicam 15 mg tablet 15 mg PO DAILY 03/22/22 11/0 12/04 nitroglycerin 0.4 mg sublingual 0.4 mg sublingual Q5MI NX3 PRN 03/22/22 03/22/22 tablet Chest Pain propranolol 60 mg capsule,24 60 mg PO DAILY 03/22/22 1 05/22/21 hr,extended release Previous Rx's ?Medication ?Instructions ?Recorded levetiracetam 750 mg tablet 750 mg PO BID #60 tabs (Keppra) lactulose 10 gram/15 mL oral 20 g (30 mL) PO TID #473 mL 11/17/24 solution Allergies Allergy/AdvReac Type Severity Reaction Status Date / Time No Known Drug Allergies Allergy Unknown Verified 11/17/24 11:58 Review of Systems Review of Systems ROS Unobtainable: All systems reviewed & are unremarkable except as noted in HPI and below Patient History Medical History Cellulitis Hypertension Parkinsons disease Social History household members: spouse Smoking Status: Former smoker Smoking Status: Former smoker alcohol intake frequency: holidays/special occasions only Exam Narrative Exam Narrative: GENERAL: [84] year old patient appears stated age. Well-developed patient, in mild distress. HEAD: Atraumatic. Normocephalic. EYES: Pupils equal round and reactive. Extraocular motions intact. No scleral icterus. No injection or drainage. ENT: Nose without bleeding, purulent drainage. Throat without erythema, tonsillar hypertrophy or exudate. Airway patent. NECK: Trachea midline. Non tender CARDIOVASCULAR: Regular rate and rhythm without murmurs, gallops, or rubs. RESPIRATORY: Clear to auscultation. Breath sounds equal bilaterally. No wheezes, rales, or rhonchi. GASTROINTESTINAL: Abdomen soft, non-tender, nondistended. EXTREMITIES: No edema or joint tenderness. BACK: Nontender without deformity or crepitance. No flank tenderness. NEURO: AOx3. SKIN: No rash or erythema of visible areas Initial Vital Signs Initial Vital Signs: Vital Signs Temperature 97.3 F L 11/17/24 11:58 Pulse Rate 75 11/17/24 11:58 Respiratory Rate 20 11/17/24 11:58 Blood Pressure 142/67 H 11/17/24 11:58 Pulse Oximetry 94 11/17/24 11:58 Oxygen Delivery Method Room Air 11/17/24 11:58 Course Orders Ordered: ED Orders 11/17/24 11:58 CT abdomen pelvis w con Stat 11/17/24 12:00 EKG-12 Lead Stat 11/17/24 12:10 Complete Blood Count AUTO DIFF Stat 11/17/24 13:02 Comprehensive Metabolic Panel Stat Lipase Stat Ondansetron HCl (Ondansetron 4 Mg/2 Ml Inj) 4 mg IV NOW PRN PRN Reason: Nausea And Vomiting Ondansetron HCl (Ondansetron 4 Mg Odt) 4 mg PO NOW PRN PRN Reason: Nausea And Vomiting Discontinued Medications Carbidopa/Levodopa (Carbidopa-Levodopa 25/100 Tablet) 1 each PO NOW ONE Stop: 11/17/24 12:39 Last Admin: 11/17/24 12:47 Dose: 1 each Documented By: EFREN Vital Signs Vital signs: Vital Signs - 8 hr 11/17/24 11:58 11/17/24 12:22 11/17/24 12:24 Temperature 97.3 F L Pulse Rate 75 68 Respiratory Rate 20 Blood Pressure 142/67 H 159/72 H Pulse Oximetry 94 95 Oxygen Delivery Method Room Air 11/17/24 12:24 11/17/24 12:30 11/17/24 12:30 Temperature Pulse Rate 59 L 58 L Respiratory Rate 22 23 Blood Pressure 140/69 Pulse Oximetry 96 96 Oxygen Delivery Method 11/17/24 13:00 11/17/24 13:00 11/17/24 13:13 Temperature Pulse Rate 58 L 62 Respiratory Rate 23 18 Blood Pressure 146/72 H Pulse Oximetry 94 94 Oxygen Delivery Method Room Air 11/17/24 13:13 Temperature Pulse Rate Respiratory Rate Blood Pressure 157/72 H Pulse Oximetry Oxygen Delivery Method MDM - Abdominal Pain Lab Data 11/17/24 12:10 11/17/24 13:02 Labs: Lab Results 11/17/24 11/17/24 Range/Units 12:10 13:02 WBC 6.7 (4.5-11.0) X10^3/uL RBC 4.86 (4.5-5.9) X10^6/uL Hgb 15.1 (13.5-17.5) g/dL Hct 44.4 (41-53) % MCV 91.2 (80-100) fL MCH 31.1 (26-34) PG MCHC 34.1 (30-36) % RDW 13.6 (11.6-14.8) % Plt Count 180 (150-400) X10^3/uL Neut % (Auto) 63.8 (50-75) % Lymph % (Auto) 21.0 L (25-40) % [place] % (Auto) 12.3 (3-14) % Eos % (Auto) 2.0 (2-4) % Baso % (Auto) 0.9 (0-2) % Neut # (Auto) 4300 (1765-4855) /uL Lymph # (Auto) 1400 (9592-7789) /uL [place] # (Auto) 800 (0-900) /uL Eos # (Auto) 100 (0-450) /uL Baso # (Auto) 100 (0-100) /uL Sodium 136 L (137-145) mmol/L Potassium 4.0 (3.4-5.1) mmol/L Chloride 104 (98-107) mmol/L Carbon Dioxide 28 (22-32) mmol/L BUN 17 (9-20) mg/dL Creatinine 0.83 (0.66-1.25) mg/dL Estimated GFR > 60 (>60) mL/min BUN/Creatinine Ratio 20.5 (6-22) Glucose 91 (70-99) mg/dL Calcium 8.3 L (8.4-10.2) mg/dL Total Bilirubin 1.0 (0.2-1.3) mg/dL AST 29 (17-59) IU/L ALT 10 (<50) IU/L Alkaline Phosphatase 64 (38-126) U/L Total Protein 6.7 (6.3-8.2) g/dL Albumin 3.8 (3.5-5.0) g/dL Globulin 2.9 (1.7-4.1) g/dL Albumin/Globulin Ratio 1.3 (1.0-2.8) Lipase 41 (23-300) U/L Point of care testing: Urine Dip Bedside Urine Glucose Negative Bedside Urine Bilirubin - Negative Bedside Urine Ketone - Negative Urine Specific [place] 1.010 Bedside Urine Occult Blood - Negative Bedside Urine pH 6.5 Bedside Urine Protein - Negative Bedside Urine Urobilinogen - Negative Bedside Urine Nitrite - Negative Bedside Urine Leukocytes - Negative Esterase Imaging Data CT scan - abdomen/pelvis: Radiologist's Impression: [place] [address] CT Scan Report Signed Patient: Mendel Pearson Jr MR#: [id number] : 1940 Acct:[id number] Age/Sex: 84 / M Date of Service: 11/17/24 Loc: ED Accession Number: [id number] Procedure: CT abdomen pelvis w con Ordering Provider: Berny South D.O. PROCEDURE: CT ABDOMEN PELVIS W CON INDICATIONS: abd pain TECHNIQUE: After the administration of intravenous contrast, axial sections acquired from the lung bases to the pubic symphysis. Coronal and sagittal reformats were performed. For radiation dose reduction, the following was used: automated exposure control, adjustment of mA and/or kV according to patient size. COMPARISON: [facility], CT, CT ABDOMEN PELVIS W CON, 03/14/2020, 11:33. [facility], CT, CT ANGIO CHEST ABDOMEN PELVIS, 09/25/2024, 13:06. FINDINGS: Image quality: Diagnostic Lower chest: Mild focal opacity at the right costophrenic angle. Normal heart size. Liver: Segment 5 probable liver cyst. Subcentimeter lesions are present, too small to characterize, probably also cysts Gallbladder and biliary system: Cholecystectomy clips, ectatic biliary system again seen likely related to postsurgical state Pancreas: No ductal dilation Spleen: Nonenlarged Adrenals: No discrete nodules Kidneys: No solid renal mass or hydronephrosis Vessels and lymph nodes: The main portal vein appears patent. No abdominal aortic aneurysm. Atherosclerotic calcifications are seen of the aorta and its branches. There are no enlarged lymph nodes identified by size criteria. Bowel and peritoneum: Trace hiatal hernia. No small bowel obstruction. No drainable abscess or ascites. [id number] rectal wall thickening. Colonic diverticulosis. Moderate focal thickening is seen at the hepatic flexure of the colon and cecum. Body wall: Bowel containing umbilical hernia without obstruction Pelvis: Small fat containing inguinal hernias. Under distended urinary bladder, with wall thickening, not well assessed. Bones: No aggressive appearing osseous abnormality. There are degenerative changes. IMPRESSION: Probable mild segmental areas of colitis and proctitis. More focal wall thickening seen along the hepatic flexure and cecum. Colonoscopy correlation is recommended to ensure there is no underlying mass, if not recently obtained. Colonic diverticulosis without focal diverticular inflammation. No small bowel obstruction. No drainable abscess or ascites. Mild focal opacity in the right lower lung, probably infectious/inflammatory. Bowel containing midline ventral hernia without obstruction. Other findings above. ECG Data Interpretation: NSR HR 60 GA 236 QRS [address]-t wave change Unchanged from 09/25/24 [facility] Narrative Medical decision making narrative: Vital signs, nurse triage note, medication list, previous ER visits, and all imaging studies reviewed. CT scan showed probable mild segmental areas of colitis proctitis more focal wall thickening seen along the hepatic flexure and cecum. Sen small-bowel obstruction no drainable abscess or ascites. Mild focal opacity in the right lower lung probably infectious inflammatory. Bowel containing midline ventral hernia without obstruction. Differential diagnosis includes UTI kidney function kidney stone pancreatitis diverticulitis constipation small-bowel obstruction. CT scans showed normal white count, calcium 8.3 sodium 136 lipase normal. D DC home to start clear liquid diet advance as tolerated and will give a prescription for lactulose as needed for constipation. Patient last had colonoscopy over 10 years ago told to follow up for repeat colonoscopy potentially based on CT scan recommendation. Discharge Plan Departure Patient Disposition: Home Clinical Impression: Colitis Instructions: DI for Colitis Activity Restrictions/Additional Instructions: Return with new or worsening symptoms. Keep hydrated. Clear liquid diet advance as tolerated. Please take lactulose as needed only for constipation. Follow up PCP in 1-2 weeks if no improvement in symptoms. Prescriptions: New lactulose 10 gram/15 mL solution 20 g PO TID Qty: 473 0RF No Action meloxicam 15 mg tablet 15 mg PO DAILY propranolol 60 mg capsule,extended release 24 hr 60 mg PO DAILY nitroglycerin 0.4 mg tablet, sublingual 0.4 mg sublingual [id number] PRN (Reason: Chest Pain) carbidopa-levodopa 25-100 mg tablet 1 tab PO 0900,1500,2100 levetiracetam [Keppra] 750 mg tablet 750 mg PO BID Qty: 60 0RF hydrochlorothiazide 25 mg Tablet 25 mg PO DAILY potassium chloride 20 mEq Tablet Extended Release 20 meq PO DAILY Referrals: Tristian Prater MD [Primary Care Provider, Family Practice] Stand Alone Forms: Patient Portal/API
[2024-11-17] MEDS: CARBIDOPA-LEVODOPA 25/100 TABLET 1 EACH PO (12:47)
[2024-11-17 13:23] LABS: Alanine Aminotransferase 10 IU/L (<50); Albumin 3.8 g/dL (3.5-5.0); Albumin Globulin Ratio 1.3 (1.0-2.8); Alkaline Phosphatase 64 U/L (38-126); Blood Urea Nitrogen 17 mg/dL (9-20); Calcium 8.3 mg/dL (8.4-10.2); Carbon Dioxide 28 mmol/L (22-32); Chloride 104 mmol/L (98-107); Estimated Glomerular Filt Rate > 60 mL/min (>60); Globulin 2.9 g/dL (1.7-4.1); Glucose 91 mg/dL (70-99); HEMOLYSIS 24 (0-50); Lipase 41 U/L (23-300); Potassium 4.0 mmol/L (3.4-5.1); Sodium 136 mmol/L (137-145); Total Protein 6.7 g/dL (6.3-8.2)
== END 2024-11-17 14:37 | disposition home or self-care (01) ==
PROVIDERS: Emergency Provider Family Medicine; Family Provider Family Medicine; PCP Family Medicine; Referring Provider Family Medicine
DX: K52.9 Noninfective gastroenteritis and colitis, unspecified (principal)
CPT/HCPCS: 36415; 74177; 80053; 81003; 83690; 85025; 93005; 93010; 99284; Q9967

== ENCOUNTER → 2025-05-10 08:18 | Outpatient (CLI) | payer MEDICARE, OTHER, SELFPAY ==
[2022-03-22 15:38] VITALS: BMI 27.0
[2025-05-10 09:47] LABS: Add Manual Diff / Slide Review NO; Hematocrit 44.6 % (41-53); Hemoglobin 14.9 g/dL (13.5-17.5); Lymphocytes Absolute Auto 1200 /uL (1100-4500); Mean Corpuscular HGB Conc 33.4 % (30-36); Mean Corpuscular Hemoglobin 30.4 PG (26-34); Mean Corpuscular Volume 91.0 fL (80-100); Platelet Count 163 X10^3/uL (150-400)
[2025-05-10 10:00] LABS: Alanine Aminotransferase 14 IU/L (<50); Albumin 4.1 g/dL (3.5-5.0); Albumin Globulin Ratio 1.4 (1.0-2.8); Alkaline Phosphatase 85 U/L (38-126); Blood Urea Nitrogen 28 mg/dL (9-20); Calcium 9.0 mg/dL (8.4-10.2); Carbon Dioxide 28 mmol/L (22-32); Chloride 104 mmol/L (98-107); Estimated Glomerular Filt Rate > 60 mL/min (>60); Globulin 2.9 g/dL (1.7-4.1); Glucose 90 mg/dL (70-99); HEMOLYSIS < 15 (0-50); Potassium 4.3 mmol/L (3.4-5.1); Sodium 140 mmol/L (137-145); Total Protein 7.0 g/dL (6.3-8.2)
[2025-05-10 10:50] LABS: Vitamin B12 592 pg/mL (239-931)
[2025-05-12 14:08] LABS: Lamotrigine Lamictal 4.3 ug/mL (2.0-20.0)
== END ==
PROVIDERS: Family Provider Family Medicine; PCP Preventive Medicine Public Health & General Preventive Medicine; Referring Provider Student in an Organized Health Care Education/Training Program; Visit Provider Student in an Organized Health Care Education/Training Program
DX: G62.9 Polyneuropathy, unspecified (principal); R56.9 Unspecified convulsions
CPT/HCPCS: 36415; 80053; 80175; 82607; 83921; 85025